=== PATIENT | male | born 1970 | race African-American/Black ===

== ENCOUNTER 2016-06-27 10:10 | Inpatient (IN) | payer MEDICAID, OTHER ==
[2016-06-27] MEDS ORDERED: LOSARTAN POTASSIUM 50 MG TABLET PO ONE (10:30)
--- NOTE | 2016-06-27 11:07 | ER Document Report ---
ED Respiratory Problem - General Chief Complaint: Breathing Difficulty Stated Complaint: SHORTNESS OF BREATH Time Seen by Provider: 06/27/16 10:15 Information source: Patient Notes: Patient is a 46-year-old male with past medical history as recorded who states she has had some increased shortness of breath and anxiety for one week. Patient denies any and all chest pain, abdominal pain, leg swelling, or fevers. Patient states he has only been intermittently taking his medications. Patient denies any auditory or visual hallucinations, suicidal ideations, homicidal ideations, or increased agitation. Patient states he last drank alcohol 3 days ago. He does admit to using cocaine yesterday. Patient states he broke up with his girlfriend around 1 week ago and has been wetting a room. He states he has not taken his medications for the last 4 days. Patient states he has some of his medications in his hotel room but is out of his hydrochlorothiazide, losartan, gabapentin, and prazosin. He denies any headache, has vomited 2, denies any diarrhea or dysuria. Patient states he has had a nonproductive cough with nasal congestion. Patient denies a history of asthma or COPD. TRAVEL OUTSIDE OF THE [place] IN LAST 30 DAYS: No - HPI Patient complains to provider of: Other - See above Onset: Other - See above Duration: Continuous Initiating Event: Other - See above Quality of pain: No pain Severity: Mild Pain Level: Denies Short of Breath: Mild Cough: Nonproductive Sputum amount: None Associated symptoms: Other - See above Similar symptoms previously: No Recently seen / treated by doctor: No - Related Data Allergies/Adverse Reactions: No Known Allergies Allergy (Verified 06/27/16 11:45) Past Medical History - General Information source: Patient - Social History Smoking Status: Smoker,Current Status Unk Cigarette use (# per day): Yes Chew tobacco use (# tins/day): No Smoking Education Provided: No Frequency of alcohol use: Heavy Drug Abuse: Cocaine Family History: Reviewed & Not Pertinent Patient has suicidal ideation: No Patient has homicidal ideation: No - Past Medical History Cardiac Medical History: Reports: Hx Hypertension GI Medical History: Reports: Hx Gastroesophageal Reflux Disease Musculoskeltal Medical History: Reports Hx Arthritis Psychiatric Medical History: Reports: Hx Depression, Hx Post Traumatic Stress Disorder Past Surgical History: Reports: Hx Orthopedic Surgery - Right knee - Immunizations Hx Diphtheria, Pertussis, Tetanus Vaccination: - unknown Hx Pneumococcal Vaccination: 02/18/14 Review of Systems - Review of Systems Constitutional: denies: Fever EENT: denies: Eye discharge, Nose discharge Respiratory: denies: Hemoptysis, Sputum Gastrointestinal: Vomiting Genitourinary: denies: Dysuria Musculoskeletal: denies: Leg swelling Skin: Other - no hives. denies: Rash Neurological/Psychological: Other - no slurred speech -: Yes All other systems reviewed and negative Physical Exam - Vital signs Vitals: Temp Resp BP Pulse Ox 98.4 F 19 171/30 H 96 06/27/16 10:51 06/27/16 10:51 06/27/16 10:51 06/27/16 10:51 Notes: Reviewed vital signs and nursing note as charted by RN. CONSTITUTIONAL: Alert and oriented and responds appropriately to questions. Well -appearing; well-nourished HEAD: Normocephalic; atraumatic EYES: PERRL ENT: Normal nose; bilateral nonpurulent nasal rhinorrhea NECK: Supple without meningismus; non-tender; no cervical lymphadenopathy, no masses CARD: Regular rate and rhythm; no murmurs, no clicks, no rubs, no gallops; symmetric distal pulses RESP: Normal chest excursion without splinting or tachypnea; breath sounds clear and equal bilaterally; no wheezing, rales, or rhonchi to auscultation. ABD/GI: Normal bowel sounds; non-distended; soft, non-tender, no rebound, no guarding; no palpable organomegaly or masses BACK: The back appears normal and is non-tender to palpation EXT: Normal ROM in all joints; non-tender to palpation; no cyanosis, no effusions, no edema SKIN: Normal color for age and race; warm; dry; good turgor; capillary refill < 2 seconds; no acute lesions noted NEURO: CN II through XII are intact. Moves all extremities equally; Motor and sensory function intact PSYCH: The patient's mood and manner are appropriate. Grooming and personal hygiene are appropriate. Course - Re-evaluation Re-evalutation: 06/27/16 11:06 Given the history and physical examination we will check basic labs, cardiac labs, EKG, x-ray the chest, and a BNP. I believe that the risk of pulmonary embolism and aortic dissection is extremely unlikely. We will provide fluids with increased glucose and restart the patient on his missing medications. Patient has a primary care physician and is followed by the [facility]. EKG shows a heart of 112, sinus tachycardia, normal axis, no obvious ST elevation or depression. Minimal LVH. Old EKG obtained from 2014 shows no obvious appreciable change. 06/27/16 12:05 Patient's breathing has improved. Heart rate is improved. X-ray of the chest shows obvious fluid overload. Good oxygen saturation. We have provided blood pressure medications. Patient has transaminitis which is consistent with his alcohol intake. I believe patient may need some IV diuretics, blood pressure management, and reassessment. Patient will be admitted to the hospitalist service. - Vital Signs Vital signs: Temp Pulse Resp BP Pulse Ox 98.4 F 18 182/143 H 96 06/27/16 10:51 06/27/16 11:01 06/27/16 11:00 06/27/16 11:01 - Laboratory Result Diagrams: 06/27/16 10:58 06/27/16 10:58 Laboratory results interpreted by me: 06/27/16 06/27/16 06/27/16 10:58 10:58 10:58 Hgb 12.6 L RDW 16.0 H Sodium 135.2 L Glucose 372 H POC Glucose Direct Bilirubin 0.5 H AST 164 H ALT 200 H Alkaline Phosphatase 185 H NT-Pro-B Natriuret Pep 3120 H Total Protein 6.0 L 06/27/16 11:27 Hgb RDW Sodium Glucose POC Glucose 348 H Direct Bilirubin AST ALT Alkaline Phosphatase NT-Pro-B Natriuret Pep Total Protein Discharge - Discharge Clinical Impression: Shortness of breath, Cocaine abuse Acute congestive heart failure Qualifiers: Congestive heart failure type: diastolic Qualified Code(s): I50.31 - Acute diastolic (congestive) heart failure Condition: Fair Disposition: ADMITTED INPATIENT Admitting Provider: Hospitalist Unit Admitted: [facility]
[2016-06-27] MEDS ORDERED: NORMAL SALINE 1000 ML 1,000 ML IV ONE (11:15)
[2016-06-27] MEDS ORDERED: METFORMIN HCL 500 MG TABLET PO ONE (11:15)
[2016-06-27 11:32] LABS: ALANINE AMINOTRANSFERASE 200 U/L (21-72); ALBUMIN 3.5 g/dL (3.5-5.0); ALKALINE PHOSPHATASE 185 U/L (38-126); ANION GAP 10 (5-19); ASPARTATE AMINO TRANSFERASE 164 U/L (17-59); BILIRUBIN,DIRECT 0.5 mg/dL (0.0-0.4); BILIRUBIN,TOTAL 1.3 mg/dL (0.2-1.3); BLOOD UREA NITROGEN 11 mg/dL (7-20); CALCIUM 8.8 mg/dL (8.4-10.2); CARBON DIOXIDE 25 mmol/L (22-30); CHLORIDE 100 mmol/L (98-107); GLUCOSE 372 mg/dL (75-110); POTASSIUM 4.5 mmol/L (3.6-5.0); SODIUM 135.2 mmol/L (137-145)
[2016-06-27 11:33] LABS: ABSOLUTE BASOPHILS # (AUTO) 0.1 10^3/uL (0.0-0.2); ABSOLUTE EOSINOPHILS # (AUTO) 0.1 10^3/uL (0.0-0.6); ABSOLUTE LYMPHOCYTES (AUTO) 1.3 10^3/uL (0.5-4.7); ABSOLUTE MONOCYTES (AUTO) 0.3 10^3/uL (0.1-1.4); ABSOLUTE NEUT (AUTO) 3.7 10^3/uL (1.7-8.2); BASOPHILS % (AUTO) 1.9 % (0-2); EOSINOPHILS % (AUTO) 2.5 % (0-6); HEMATOCRIT 37.9 % (37.9-51.0); HEMOGLOBIN 12.6 g/dL (13.5-17.0); HGB HCT DIFFERENCE -0.1; MEAN CORPUSCULAR HEMOGLOBIN 27.1 pg (27.0-33.4); MEAN CORPUSCULAR HGB CONC 33.2 g/dL (32.0-36.0); MEAN CORPUSCULAR VOLUME 82 fl (80-97); MONOCYTES % (AUTO) 6.3 % (3-13); RED BLOOD COUNT 4.64 10^6/uL (4.35-5.55); SEGMENTED NEUTROPHILS % (AUTO) 66.3 % (42-78); WHITE BLOOD COUNT 5.5 10^3/uL (4.0-10.5)
[2016-06-27 11:45] LABS: TROPONIN I 0.029 ng/mL
[2016-06-27] MEDS ORDERED: FUROSEMIDE INJ/PF 20 MG/2 ML SDV IV ONE (12:03)
[2016-06-27] MEDS ORDERED: ONDANSETRON HCL INJ/PF 4 MG/2 ML SDV IV PRN (12:56)
[2016-06-27] MEDS ORDERED: ONDANSETRON 4 MG TAB.RAPDIS PO PRN (12:56)
[2016-06-27] MEDS ORDERED: DEXTROSE 50%-WATER 25 GM/50 ML DISP.SYRIN IV PRN ×2 (13:03)
[2016-06-27] MEDS ORDERED: GLUCAGON,HUMAN RECOMB 1 MG INJ IM PRN (13:03)
[2016-06-27] MEDS ORDERED: DEXTROSE 40% GEL 15 GM TUBE PO PRN ×2 (13:03)
[2016-06-27] MEDS ORDERED: NITROGLYCERIN 2% OINTMENT 1 GM PACKET TP ONE (13:30)
--- NOTE | 2016-06-27 13:33 | PDOC H&P ---
History of Present Illness Admission Date/PCP: 06/27/16 12:21 Patient complains of: Shortness of breath History of Present Illness: MARILOU CUTLER is a 46 year old male who presents with a 1-week history shortness of breath. Patient reports that over the last week he has had worsening shortness of breath. He has not been taking his medications and has been from his for 2 months. He reports that he's been living at friend's house and has not taken his medications. Patient denies any chest pain but does report having orthopnea and PND. He is noted to be very hypertensive when he presented and chest x-ray shows an to have some pulmonary edema. The patient also does relate that he has done some cocaine over the last several days. The patient denies any fevers or chills. He does have a nonproductive cough. Denies any palpitations or tachycardia. He has not been checking his blood sugars or using his CPAP at night for his obstructive sleep apnea. Past Medical History Cardiac Medical History: Reports: Hypertension Pulmonary Medical History: Reports: Sleep Apnea EENT Medical History: Reports: None Neurological Medical History: Reports: None Endocrine Medical History: Reports: Diabetes Mellitus Type 2 Renal/ Medical History: Reports: None Malignancy Medical History: Reports: None GI Medical History: Reports: Gastroesophageal Reflux Disease Musculoskeltal Medical History: Reports: Arthritis Skin Medical History: Reports: None Psychiatric Medical History: Reports: Bipolar Disorder, Depression, Post Traumatic Stress Disorder Traumatic Medical History: Reports: None Hematology: Reports: None Infectious Medical History: Reports: None Past Surgical History Past Surgical History: Reports: Orthopedic Surgery - Right knee Social History Information Source: Patient Lives with: Friend Smoking Status: Smoker,Current Status Unk Frequency of Alcohol Use: Heavy Hx Recreational Drug Use: Yes Drugs: Cocaine, Marijuana Hx Prescription Drug Abuse: No - Advance Directive Resuscitation Status: Full Code Surrogate healthcare decision maker:: He is uncertain who that would be. He is from his . Family History Family History: Father at age 59 and had diabetes and coronary artery disease. Mother is 63 and alive. He reports that she is disabled but does not know what her problems are. Parental Family History Reviewed: Yes Children Family History Reviewed: No Sibling(s) Family History Reviewed.: No Medication/Allergy Home Medications: Cyanocobalamin (Vitamin B-12) [Vitamin B-12] 1,000 mcg PO DAILY 06/27/16 Gabapentin [Neurontin 400 mg Capsule] 400 mg PO QAM 06/27/16 Gabapentin [Neurontin 400 mg Capsule] 400 mg PO QHS 06/27/16 Hydrochlorothiazide 25 mg PO QAM 06/27/16 Losartan Potassium [Cozaar 50 mg Tablet] 50 mg PO QPM 06/27/16 Metformin HCl [Metformin HCl ER] 500 mg PO DAILY 06/27/16 Multivitamin/Iron/Folic Acid [Centrum Complete Multivit Tab] 1 tab PO DAILY 12/04 Omeprazole 20 mg PO QPM 06/27/16 Prazosin HCl [Minipress] 2 mg PO QHS 06/27/16 Quetiapine Fumarate [Seroquel] 300 mg PO QHS 06/27/16 Venlafaxine HCl [Effexor Xr] 150 mg PO BID 06/27/16 Allergies/Adverse Reactions: No Known Allergies Allergy (Verified 06/27/16 11:45) Review of Systems Constitutional: ABSENT: chills, fever(s), headache(s), night sweats, weight gain , weight loss Eyes: ABSENT: visual disturbances Ears: ABSENT: hearing changes Cardiovascular: PRESENT: dyspnea on exertion, edema, orthropnea. ABSENT: chest pain, palpitations Respiratory: PRESENT: as per HPI Gastrointestinal: ABSENT: abdominal pain, constipation, diarrhea, hematemesis, hematochezia, nausea, vomiting Genitourinary: ABSENT: dysuria, hematuria Musculoskeletal: ABSENT: joint swelling Integumentary: ABSENT: rash, wounds Neurological: ABSENT: abnormal gait, abnormal speech, confusion, dizziness, focal weakness, syncope Psychiatric: PRESENT: anxiety Endocrine: ABSENT: cold intolerance, heat intolerance, polydipsia, polyuria Hematologic/Lymphatic: ABSENT: easy bleeding, easy bruising Physical Exam Vital Signs: Temp Pulse Resp BP Pulse Ox 98.4 F 30 H 174/133 H 95 06/27/16 10:51 06/27/16 12:33 06/27/16 12:33 06/27/16 12:33 General appearance: PRESENT: no acute distress Eye exam: PRESENT: conjunctiva pink, EOMI, PERRLA. ABSENT: scleral icterus Ear exam: PRESENT: normal external ear exam Mouth exam: PRESENT: moist, tongue midline Neck exam: ABSENT: carotid bruit, JVD, lymphadenopathy, thyromegaly Respiratory exam: PRESENT: decreased breath sounds - Decreased breath sounds in the bases.. ABSENT: rales, rhonchi, wheezes Cardiovascular exam: PRESENT: RRR. ABSENT: diastolic murmur, rubs, systolic murmur Pulses: PRESENT: normal dorsalis pedis pul Vascular exam: PRESENT: normal capillary refill GI/Abdominal exam: PRESENT: normal bowel sounds, soft. ABSENT: distended, guarding, mass, organolmegaly, rebound, tenderness Rectal exam: PRESENT: deferred Extremities exam: ABSENT: calf tenderness, clubbing, pedal edema Neurological exam: PRESENT: alert, awake, oriented to person, oriented to place , oriented to time, oriented to situation, CN II-XII grossly intact. ABSENT: motor sensory deficit Psychiatric exam: PRESENT: anxious Skin exam: PRESENT: dry, intact, warm. ABSENT: cyanosis, rash Results Impressions: Chest X-Ray 06/27/16 10:30 IMPRESSION: Findings worrisome for fluid overload or congestive failure. Underlying pneumonia could not be excluded. Assessment & Plan - Diagnosis (1) Acute congestive heart failure Qualifiers: Congestive heart failure type: diastolic Qualified Code(s): I50.31 - Acute diastolic (congestive) heart failure Is this a current diagnosis for this admission?: YesPlan: Patient has acute congestive heart failure most likely related to uncontrolled blood pressures. We'll check serial cardiac enzymes to make certain he has not had any acute cardiac event and will also check an echocardiogram. We will give Nitropaste, IV Lasix, IV hydralazine to lower his blood pressure and hopefully his CHF will resolve. Patient does use cocaine also and this certainly is not helping his situation. (2) Cocaine abuse Is this a current diagnosis for this admission?: YesPlan: We'll avoid beta blockers given his recurrent history of cocaine abuse. (3) Diabetes mellitus Is this a current diagnosis for this admission?: YesPlan: Patient is to be covered with sliding scale insulin. (4) Bipolar disorder Is this a current diagnosis for this admission?: YesPlan: We'll continue with the Effexor and Seroquel. (5) Posttraumatic stress disorder Is this a current diagnosis for this admission?: YesPlan: Patient is followed at the [facility] for this (6) Hypertension Is this a current diagnosis for this admission?: YesPlan: We'll give IV Lasix, hydralazine, nitroglycerin paste. (7) DALIA (obstructive sleep apnea) Is this a current diagnosis for this admission?: YesPlan: Will use his CPAP daily at bedtime. - Time Time Spent: 50 to 70 Minutes - Inpatient Certification Medical Necessity: Need Close Monitoring Due to Risk of Patient Decompensation - Plan Summary Plan Summary: Patient will be admitted as an inpatient as I anticipate this will require greater than a 2 midnight hospital stay because of his need for IV diuretics.
--- NOTE | 2016-06-27 13:53 | EKG REPORT ---
SEVERITY:- ABNORMAL ECG - SINUS TACHYCARDIA PROBABLE LEFT ATRIAL ABNORMALITY PROBABLE LEFT VENTRICULAR HYPERTROPHY : Confirmed by: Pamela Loza 27-Jun-2016 13:52:57
[2016-06-27] MEDS: HYDRALAZINE HCL INJ/PF 20 MG/1 ML SDV IV PRN (15:10)
[2016-06-27] MEDS: INSULIN LISPRO 100 UNIT/ML 3 ML VIAL SUBCUT PRN ×2 (16:26→22:41)
[2016-06-27] MEDS: LANSOPRAZOLE 15 MG TAB.RAP.DR PO SCH (17:05)
[2016-06-27] MEDS: NITROGLYCERIN 2% OINTMENT 1 GM PACKET TP SCH ×2 (17:05→23:57)
[2016-06-27] MEDS: LOSARTAN POTASSIUM 50 MG TABLET PO SCH (17:06)
[2016-06-27 18:18] LABS: CREATINE KINASE MB 1.12 ng/mL (<4.55); TROPONIN I 0.025 ng/mL
[2016-06-27] MEDS ORDERED: CLONIDINE HCL 0.1 MG TABLET PO ONE (18:30)
--- NOTE | 2016-06-27 18:32 | XCELERA REPORT ---
[address] [address] Transthoracic Echocardiogram Report Name: MARILOU CUTLER Age: 46 yrs Gender: Male : 1970 Patient Status: Inpatient Patient Location: \S\[facility]\S\A Study Date: 06/27/2016 01:48 PM Height: 72 in Weight: 210 lb BSA: 2.2 m2 Procedure: A two-dimensional transthoracic echocardiogram with color flow and Doppler was performed. The study was technically difficult with many images being suboptimal in quality. The study was technically limited with all images being suboptimal in quality. Reason For Study: CHF /SOB /SWANSON History: CHF /SOB /SWANSON. Ordering Physician: JARROD JULIO Performed By: Alyce Garcia Interpretation Summary The left ventricle is moderately dilated. There is normal left ventricular wall thickness. LV EF is 25% Left ventricular systolic function is severely reduced. LV diastolic function could not be adequately assessed. There is severe global hypokinesis of the left ventricle. There is no thrombus. There is no ventricular septal defect visualized. The right ventricle is not well visualized secondary to technical limitations suspect RVH,mild RV enlargement and mildly reduced RV systolic function. Right atrium not well visualized secondary to technical limitations Probably mildly enlarged RA. The left atrium is moderately dilated. There is no evidence of mitral valve prolapse. There is no mitral valve stenosis. There is a mild to moderate amount of mitral regurgitation There is no aortic valve stenosis There is no LVOT obstruction. No aortic regurgitation is present. There is no tricuspid stenosis. There is a mild to moderate amount of tricuspid regurgitation There is servere pulmonary hypertension by echo RVSP is 69 to 74 mm of Hg , with RA mean of 15 to 20. There is a mild amount of pulmonic regurgitation Trace circumferential pericardial effusion. There are no echocardiographic indications of cardiac tamponade. MMode/2D Measurements \T\ Calculations RVDd: 3.6 cm LVIDd: 5.8 cm FS: 13.2 % EPSS: 2.0 cm IVSd: 0.88 cm LVIDs: 5.0 cm EDV(Teich): 167.9 ml LVPWd: 0.97 cm ESV(Teich): 121.0 ml EF(Teich): 27.9 % Ao root diam: 3.0 cm Ao root area: 6.9 cm2 LA dimension: 4.8 cm Doppler Measurements \T\ Calculations MV E max abad: MV P1/2t max abad: Ao V2 max: LV V1 max P.4 cm/sec 126.4 cm/sec 103.9 cm/sec 2.8 mmHg MV P1/2t: 40.2 msec Ao max PG: LV V1 max: MVA(P1/2t): 5.5 cm2 4.3 mmHg 83.9 cm/sec MV dec slope: 920.2 cm/sec2 PA V2 max: TR max abad: 79.5 cm/sec 365.8 cm/sec PA max P.5 mmHgTR max P.5 mmHg Left Ventricle The left ventricle is moderately dilated. There is normal left ventricular wall thickness. LV EF is 25%. Left ventricular systolic function is severely reduced. LV diastolic function could not be adequately assessed. There is severe global hypokinesis of the left ventricle. There is no thrombus. There is no ventricular septal defect visualized. Right Ventricle The right ventricle is not well visualized secondary to technical limitations. suspect RVH,mild RV enlargement and mildly reduced RV systolic function. Atria Right atrium not well visualized secondary to technical limitations. Probably mildly enlarged RA. The left atrium is moderately dilated. The interatrial septum is intact with no evidence for an atrial septal defect. Mitral Valve There is no evidence of mitral valve prolapse. There is no vegetation seen on the mitral valve. There is no mitral valve stenosis. There is a mild to moderate amount of mitral regurgitation. Aortic Valve There is no aortic valvular vegetation. There is no aortic valve stenosis. There is no LVOT obstruction. No aortic regurgitation is present. Tricuspid Valve There is no tricuspid stenosis. There is a mild to moderate amount of tricuspid regurgitation. There is servere pulmonary hypertension by echo. RVSP is 69 to 74 mm of Hg , with RA mean of 15 to 20. Pulmonic Valve There is no pulmonic valvular stenosis. There is a mild amount of pulmonic regurgitation. Great Vessels The aortic root is normal size. The inferior vena cava appeared dilated and decreased < 50% with respiration (RAP 15-20 mmHg). Effusions Trace circumferential pericardial effusion. There are no echocardiographic indications of cardiac tamponade. : JARROD JULIO > Elly Hardy
[2016-06-27] MEDS: ALBUTEROL SULFATE 0.083% NEB 2.5 MG/3 ML AMPUL NEB PRN (21:33)
[2016-06-27] MEDS: ACETAMINOPHEN 325 MG TABLET PO PRN (21:59)
[2016-06-27] MEDS ORDERED: (PENDING PHARMACY ID) (Quetiapine Fumarate [Seroquel] 300 MG) PO SCH (22:00)
[2016-06-27] MEDS: FUROSEMIDE INJ/PF 20 MG/2 ML SDV IV SCH (22:00)
[2016-06-27] MEDS ORDERED: (PENDING PHARMACY ID) (Prazosin Hcl [Minipress] 2 MG) PO SCH (22:00)
[2016-06-27] MEDS ORDERED: GABAPENTIN 400 MG CAPSULE PO SCH (22:00)
[2016-06-27] MEDS: FAMOTIDINE 20 MG TABLET PO SCH (22:01)
[2016-06-27] MEDS: VENLAFAXINE HCL 75 MG CAP.SR.24H PO SCH (22:01)
[2016-06-27] MEDS: QUETIAPINE FUMARATE 100 MG TABLET PO SCH (22:02)
[2016-06-28 00:15] LABS: CREATINE KINASE MB 1.03 ng/mL (<4.55); TROPONIN I 0.03 ng/mL
[2016-06-28 06:01] LABS: HEMATOCRIT 34.2 % (37.9-51.0); HEMOGLOBIN 11.5 g/dL (13.5-17.0); HGB HCT DIFFERENCE 0.3; MEAN CORPUSCULAR HEMOGLOBIN 27.2 pg (27.0-33.4); MEAN CORPUSCULAR HGB CONC 33.5 g/dL (32.0-36.0); MEAN CORPUSCULAR VOLUME 81 fl (80-97); RED BLOOD COUNT 4.22 10^6/uL (4.35-5.55); RED CELL DISTRIBUTION WIDTH 16.4 % (11.5-14.0); WHITE BLOOD COUNT 5.2 10^3/uL (4.0-10.5)
[2016-06-28] MEDS: NITROGLYCERIN 2% OINTMENT 1 GM PACKET TP SCH ×3 (06:11→17:34)
[2016-06-28 06:33] LABS: CREATINE KINASE MB 0.76 ng/mL (<4.55); TROPONIN I 0.031 ng/mL
[2016-06-28 07:27] LABS: ANION GAP 11 (5-19); BLOOD UREA NITROGEN 15 mg/dL (7-20); CALCIUM 8.7 mg/dL (8.4-10.2); CARBON DIOXIDE 27 mmol/L (22-30); CHLORIDE 101 mmol/L (98-107); CREATINE KINASE 68 U/L (55-170); CREATININE RESULT 0.95 mg/dL (0.52-1.25); GLUCOSE 207 mg/dL (75-110); MAGNESIUM 1.7 mg/dL (1.6-2.3); POTASSIUM 3.6 mmol/L (3.6-5.0); SODIUM 138.8 mmol/L (137-145)
[2016-06-28] MEDS: INSULIN LISPRO 100 UNIT/ML 3 ML VIAL SUBCUT PRN ×4 (07:50→22:43)
[2016-06-28] MEDS ORDERED: GABAPENTIN 400 MG CAPSULE PO SCH (08:00)
[2016-06-28] MEDS: CYANOCOBALAMIN (VITAMIN B-12) 1,000 MCG TABLET PO SCH (09:20)
[2016-06-28] MEDS: HYDROCHLOROTHIAZIDE 25 MG TABLET PO SCH (09:20)
[2016-06-28] MEDS: MULTIVITAMIN TABLET PO SCH (09:20)
[2016-06-28] MEDS: FAMOTIDINE 20 MG TABLET PO SCH ×2 (09:20→22:37)
[2016-06-28] MEDS: VENLAFAXINE HCL 75 MG CAP.SR.24H PO SCH ×2 (09:21→22:37)
[2016-06-28] MEDS: FUROSEMIDE INJ/PF 20 MG/2 ML SDV IV SCH ×2 (09:21→22:37)
[2016-06-28] MEDS ORDERED: (PENDING PHARMACY ID) (Multivitamin/Iron/Folic Acid [Centrum Complete Multivit Tab] 1 TAB) PO SCH (10:00)
--- NOTE | 2016-06-28 10:30 | PDOC PROGRESS REPORT ---
Subjective Progress Note for:: 06/28/16 Subjective:: Patient is still short of breath but reports is improved from yesterday. Physical Exam Vital Signs: Temp Pulse Resp BP Pulse Ox 97.9 F 100 18 151/103 H 98 06/28/16 07:57 06/28/16 08:00 06/28/16 08:00 06/28/16 07:57 06/28/16 08:00 Intake & Output 06/27/16 06/28/16 06/29/16 06:59 06:59 06:59 Intake Total 712 Output Total 1999 Balance -1288 Weight 94.3 kg General appearance: PRESENT: mild distress Eye exam: PRESENT: conjunctiva pink. ABSENT: scleral icterus Mouth exam: PRESENT: moist, tongue midline Neck exam: ABSENT: JVD Respiratory exam: PRESENT: rales - Bibasilar respiratory rales.. ABSENT: rhonchi, wheezes Cardiovascular exam: PRESENT: RRR. ABSENT: diastolic murmur, rubs, systolic murmur GI/Abdominal exam: PRESENT: normal bowel sounds, soft. ABSENT: distended, guarding, mass, organolmegaly, rebound, tenderness Extremities exam: PRESENT: pedal edema - Trace pretibial edema.. ABSENT: calf tenderness, clubbing Neurological exam: PRESENT: alert, awake, oriented to person, oriented to place , oriented to time, oriented to situation, CN II-XII grossly intact. ABSENT: motor sensory deficit Psychiatric exam: PRESENT: appropriate affect Skin exam: PRESENT: dry, intact, warm. ABSENT: cyanosis, rash Results Laboratory Results: 06/28/16 05:29 06/28/16 06:59 06/28/16 06/28/16 06/28/16 05:29 05:29 06:59 WBC 5.2 RBC 4.22 L Hgb 11.5 L Hct 34.2 L MCV 81 MCH 27.2 MCHC 33.5 RDW 16.4 H Plt Count 225 Sodium Cancelled 138.8 Potassium Cancelled 3.6 Chloride Cancelled 101 Carbon Dioxide Cancelled 27 Anion Gap Cancelled 11 BUN Cancelled 15 Creatinine Cancelled 0.95 Est GFR ( Amer) Cancelled > 60 Est GFR (Non-Af Amer) Cancelled > 60 Glucose Cancelled 207 H Calcium Cancelled 8.7 Magnesium Cancelled 1.7 06/27/16 06/27/1606/27/17 17:25 17:25 23:30 Creatine Kinase 95 73 CK-MB (CK-2) 1.12 Troponin I 0.025 06/27/16 06/28/16 06/28/16 23:30 05:29 05:29 Creatine Kinase Cancelled CK-MB (CK-2) 1.03 0.76 Troponin I 0.030 0.031 06/28/16 06:59 Creatine Kinase 68 CK-MB (CK-2) Troponin I Impressions: Chest X-Ray 06/27/16 10:30 IMPRESSION: Findings worrisome for fluid overload or congestive failure. Underlying pneumonia could not be excluded. Assessment & Plan - Diagnosis (1) Acute congestive heart failure Qualifiers: Congestive heart failure type: diastolic Qualified Code(s): I50.31 - Acute diastolic (congestive) heart failure Is this a current diagnosis for this admission?: YesPlan: Patient has acute congestive heart failure most likely related to uncontrolled blood pressures. The patient had an echocardiogram yesterday that shows an ejection fraction of 25% along with significant pulmonary hypertension. We'll continue with an hypertensives and IV Lasix. Patient currently is using his CPAP. (2) Cocaine abuse Is this a current diagnosis for this admission?: YesPlan: We'll avoid beta blockers given his recurrent history of cocaine abuse. (3) Diabetes mellitus Is this a current diagnosis for this admission?: YesPlan: Patient is to be covered with sliding scale insulin. (4) Bipolar disorder Is this a current diagnosis for this admission?: YesPlan: We'll continue with the Effexor and Seroquel. (5) Posttraumatic stress disorder Is this a current diagnosis for this admission?: YesPlan: Patient is followed at the [facility] for this (6) Hypertension Is this a current diagnosis for this admission?: YesPlan: We'll give IV Lasix, hydralazine, nitroglycerin paste. (7) DALIA (obstructive sleep apnea) Is this a current diagnosis for this admission?: YesPlan: Will use his CPAP daily at bedtime. - Time Time Spent with patient: 25-34 minutes - Inpatient Certification Medical Necessity: Need Close Monitoring Due to Risk of Patient Decompensation
[2016-06-28] MEDS: HYDRALAZINE HCL INJ/PF 20 MG/1 ML SDV IV PRN ×2 (14:53→22:45)
[2016-06-28] MEDS: LANSOPRAZOLE 15 MG TAB.RAP.DR PO SCH (17:34)
[2016-06-28] MEDS: LOSARTAN POTASSIUM 50 MG TABLET PO SCH (17:34)
[2016-06-28] MEDS: QUETIAPINE FUMARATE 100 MG TABLET PO SCH (22:36)
[2016-06-28] MEDS: GABAPENTIN 400 MG CAPSULE PO SCH (22:36)
[2016-06-29] MEDS: NITROGLYCERIN 2% OINTMENT 1 GM PACKET TP SCH ×4 (00:39→17:30)
[2016-06-29 04:43] LABS: ABSOLUTE BASOPHILS # (AUTO) 0.1 10^3/uL (0.0-0.2); ABSOLUTE EOSINOPHILS # (AUTO) 0.3 10^3/uL (0.0-0.6); ABSOLUTE LYMPHOCYTES (AUTO) 0.9 10^3/uL (0.5-4.7); ABSOLUTE MONOCYTES (AUTO) 0.4 10^3/uL (0.1-1.4); ABSOLUTE NEUT (AUTO) 4.5 10^3/uL (1.7-8.2); EOSINOPHILS % (AUTO) 4.6 % (0-6); HEMATOCRIT 36.3 % (37.9-51.0); HEMOGLOBIN 12.2 g/dL (13.5-17.0); HGB HCT DIFFERENCE 0.3; LYMPHOCYTES % (AUTO) 15.3 % (13-45); MEAN CORPUSCULAR HEMOGLOBIN 26.9 pg (27.0-33.4); MEAN CORPUSCULAR HGB CONC 33.6 g/dL (32.0-36.0); MEAN CORPUSCULAR VOLUME 80 fl (80-97); MONOCYTES % (AUTO) 5.8 % (3-13); RED BLOOD COUNT 4.53 10^6/uL (4.35-5.55); RED CELL DISTRIBUTION WIDTH 16.1 % (11.5-14.0); SEGMENTED NEUTROPHILS % (AUTO) 73.3 % (42-78); WHITE BLOOD COUNT 6.2 10^3/uL (4.0-10.5)
[2016-06-29 05:03] LABS: ANION GAP 12 (5-19); BLOOD UREA NITROGEN 14 mg/dL (7-20); CALCIUM 9.1 mg/dL (8.4-10.2); CARBON DIOXIDE 27 mmol/L (22-30); CHLORIDE 100 mmol/L (98-107); CREATININE RESULT 0.96 mg/dL (0.52-1.25); GLUCOSE 204 mg/dL (75-110); POTASSIUM 3.8 mmol/L (3.6-5.0); SODIUM 139.3 mmol/L (137-145)
[2016-06-29] MEDS: INSULIN LISPRO 100 UNIT/ML 3 ML VIAL SUBCUT PRN ×4 (07:29→22:40)
[2016-06-29] MEDS: HYDROCHLOROTHIAZIDE 25 MG TABLET PO SCH (07:37)
[2016-06-29] MEDS: VENLAFAXINE HCL 75 MG CAP.SR.24H PO SCH ×2 (09:29→21:36)
[2016-06-29] MEDS: CYANOCOBALAMIN (VITAMIN B-12) 1,000 MCG TABLET PO SCH (09:29)
[2016-06-29] MEDS: FUROSEMIDE INJ/PF 20 MG/2 ML SDV IV SCH ×2 (09:29→21:37)
[2016-06-29] MEDS: GABAPENTIN 400 MG CAPSULE PO SCH ×2 (09:29→21:36)
[2016-06-29] MEDS: FAMOTIDINE 20 MG TABLET PO SCH ×2 (09:29→21:36)
[2016-06-29] MEDS: MULTIVITAMIN TABLET PO SCH (09:29)
[2016-06-29] MEDS: ALBUTEROL SULFATE 0.083% NEB 2.5 MG/3 ML AMPUL NEB PRN (09:38)
--- NOTE | 2016-06-29 11:04 | PDOC PROGRESS REPORT ---
Subjective Progress Note for:: 06/29/16 Subjective:: Denies any complaints. Physical Exam Vital Signs: Temp Pulse Resp BP Pulse Ox 98.6 F 110 H 18 152/111 H 93 06/29/16 07:55 06/29/16 09:35 06/29/16 09:35 06/29/16 07:55 06/29/16 09:35 Intake & Output 06/28/16 06/29/16 06/30/16 06:59 06:59 06:59 Intake Total 712 1861 Output Total 1999 5115 Balance -9034 -4740 Weight 94.3 kg 92.2 kg General appearance: PRESENT: no acute distress Eye exam: PRESENT: conjunctiva pink. ABSENT: scleral icterus Mouth exam: PRESENT: moist, tongue midline Neck exam: ABSENT: JVD Respiratory exam: PRESENT: clear to auscultation dewayne. ABSENT: rales, rhonchi, wheezes Cardiovascular exam: PRESENT: RRR. ABSENT: diastolic murmur, rubs, systolic murmur GI/Abdominal exam: PRESENT: normal bowel sounds, soft. ABSENT: distended, guarding, mass, organolmegaly, rebound, tenderness Extremities exam: ABSENT: calf tenderness, clubbing, pedal edema Neurological exam: PRESENT: alert, awake, oriented to person, oriented to place , oriented to time, oriented to situation, CN II-XII grossly intact. ABSENT: motor sensory deficit Psychiatric exam: PRESENT: appropriate affect Skin exam: PRESENT: dry, intact, warm. ABSENT: cyanosis, rash Results Laboratory Results: 06/29/16 04:28 06/29/16 04:28 06/29/16 06/29/16 04:28 04:28 WBC 6.2 RBC 4.53 Hgb 12.2 L Hct 36.3 L MCV 80 MCH 26.9 L MCHC 33.6 RDW 16.1 H Plt Count 298 Seg Neutrophils % 73.3 Lymphocytes % 15.3 Monocytes % 5.8 Eosinophils % 4.6 Basophils % 1.0 Absolute Neutrophils 4.5 Absolute Lymphocytes 0.9 Absolute Monocytes 0.4 Absolute Eosinophils 0.3 Absolute Basophils 0.1 Sodium 139.3 Potassium 3.8 Chloride 100 Carbon Dioxide 27 Anion Gap 12 BUN 14 Creatinine 0.96 Est GFR ( Amer) > 60 Est GFR (Non-Af Amer) > 60 Glucose 204 H Calcium 9.1 06/27/16 06/27/16 06/27/16 17:25 17:25 23:30 Creatine Kinase 95 73 CK-MB (CK-2) 1.12 Troponin I 0.025 06/27/16 06/28/16 06/28/16 23:30 05:29 05:29 Creatine Kinase Cancelled CK-MB (CK-2) 1.03 0.76 Troponin I 0.030 0.031 06/28/16 06:59 Creatine Kinase 68 CK-MB (CK-2) Troponin I Impressions: Chest X-Ray 06/27/16 10:30 IMPRESSION: Findings worrisome for fluid overload or congestive failure. Underlying pneumonia could not be excluded. Assessment & Plan - Diagnosis (1) Acute congestive heart failure Qualifiers: Congestive heart failure type: diastolic Qualified Code(s): I50.31 - Acute diastolic (congestive) heart failure Is this a current diagnosis for this admission?: YesPlan: Patient has acute congestive heart failure most likely related to uncontrolled blood pressures. The patient had an echocardiogram that shows an ejection fraction of 25% along with significant pulmonary hypertension. We'll continue with an hypertensives and IV Lasix. Patient currently is using his CPAP. (2) Cocaine abuse Is this a current diagnosis for this admission?: YesPlan: We'll avoid beta blockers given his recurrent history of cocaine abuse. (3) Diabetes mellitus Is this a current diagnosis for this admission?: YesPlan: Patient is to be covered with sliding scale insulin. (4) Bipolar disorder Is this a current diagnosis for this admission?: YesPlan: We'll continue with the Effexor and Seroquel. (5) Posttraumatic stress disorder Is this a current diagnosis for this admission?: YesPlan: Patient is followed at the [facility] for this (6) Hypertension Is this a current diagnosis for this admission?: YesPlan: We'll give IV Lasix, hydralazine, nitroglycerin paste. (7) DALIA (obstructive sleep apnea) Is this a current diagnosis for this admission?: YesPlan: Will use his CPAP daily at bedtime. - Time Time Spent with patient: 25-34 minutes - Inpatient Certification Medical Necessity: Need Close Monitoring Due to Risk of Patient Decompensation - Plan Summary Plan Summary: If he continues to improve, hopefully he can be discharged home tomorrow.
[2016-06-29] MEDS: ACETAMINOPHEN 325 MG TABLET PO PRN ×2 (11:54→18:54)
[2016-06-29] MEDS: LANSOPRAZOLE 15 MG TAB.RAP.DR PO SCH (17:29)
[2016-06-29] MEDS: LOSARTAN POTASSIUM 50 MG TABLET PO SCH (17:29)
[2016-06-29] MEDS: HYDRALAZINE HCL INJ/PF 20 MG/1 ML SDV IV PRN (18:53)
[2016-06-29] MEDS: QUETIAPINE FUMARATE 100 MG TABLET PO SCH (21:36)
[2016-06-30] MEDS: NITROGLYCERIN 2% OINTMENT 1 GM PACKET TP SCH ×2 (02:06→05:53)
[2016-06-30 04:48] LABS: ABSOLUTE BASOPHILS # (AUTO) 0.1 10^3/uL (0.0-0.2); ABSOLUTE EOSINOPHILS # (AUTO) 0.3 10^3/uL (0.0-0.6); ABSOLUTE LYMPHOCYTES (AUTO) 0.9 10^3/uL (0.5-4.7); ABSOLUTE MONOCYTES (AUTO) 0.4 10^3/uL (0.1-1.4); ABSOLUTE NEUT (AUTO) 4.8 10^3/uL (1.7-8.2); BASOPHILS % (AUTO) 1.4 % (0-2); EOSINOPHILS % (AUTO) 4.9 % (0-6); HEMATOCRIT 38.3 % (37.9-51.0); HEMOGLOBIN 12.8 g/dL (13.5-17.0); HGB HCT DIFFERENCE 0.1; LYMPHOCYTES % (AUTO) 14.2 % (13-45); MEAN CORPUSCULAR HEMOGLOBIN 26.8 pg (27.0-33.4); MEAN CORPUSCULAR HGB CONC 33.5 g/dL (32.0-36.0); MEAN CORPUSCULAR VOLUME 80 fl (80-97); MONOCYTES % (AUTO) 5.7 % (3-13); RED BLOOD COUNT 4.78 10^6/uL (4.35-5.55); RED CELL DISTRIBUTION WIDTH 16.6 % (11.5-14.0); SEGMENTED NEUTROPHILS % (AUTO) 73.8 % (42-78); WHITE BLOOD COUNT 6.4 10^3/uL (4.0-10.5)
[2016-06-30 05:29] LABS: ANION GAP 11 (5-19); BLOOD UREA NITROGEN 14 mg/dL (7-20); CALCIUM 9.3 mg/dL (8.4-10.2); CARBON DIOXIDE 27 mmol/L (22-30); CHLORIDE 102 mmol/L (98-107); CREATININE RESULT 0.89 mg/dL (0.52-1.25); GLUCOSE 134 mg/dL (75-110); SODIUM 139.7 mmol/L (137-145)
[2016-06-30] MEDS: HYDROCHLOROTHIAZIDE 25 MG TABLET PO SCH (08:31)
[2016-06-30] MEDS: FUROSEMIDE INJ/PF 20 MG/2 ML SDV IV SCH (09:26)
[2016-06-30] MEDS: GABAPENTIN 400 MG CAPSULE PO SCH (09:29)
[2016-06-30] MEDS: CYANOCOBALAMIN (VITAMIN B-12) 1,000 MCG TABLET PO SCH (09:29)
[2016-06-30] MEDS: VENLAFAXINE HCL 75 MG CAP.SR.24H PO SCH (09:29)
[2016-06-30] MEDS: MULTIVITAMIN TABLET PO SCH (09:29)
[2016-06-30] MEDS: FAMOTIDINE 20 MG TABLET PO SCH (09:30)
[2016-06-30 09:36] VITALS: BP 169/130
--- NOTE | 2016-06-30 10:38 | PDOC DISCHARGE SUMMARY ---
General - Admit/Disc Date/PCP Admission Date/Primary Care Provider: 06/27/16 12:56 Discharge Date: 06/30/16 - Discharge Diagnosis (1) Acute congestive heart failure Is this a current diagnosis for this admission?: YesSummary: Systolic congestive heart failure. Secondary to uncontrolled hypertension as well as severe pulmonary hypertension. Ejection fraction of 25%. (2) Cocaine abuse Is this a current diagnosis for this admission?: Yes (3) Diabetes mellitus Is this a current diagnosis for this admission?: Yes (4) Bipolar disorder Is this a current diagnosis for this admission?: Yes (5) Posttraumatic stress disorder Is this a current diagnosis for this admission?: Yes (6) Hypertension Is this a current diagnosis for this admission?: Yes (7) DALIA (obstructive sleep apnea) Is this a current diagnosis for this admission?: YesSummary: Patient has not been wearing his CPAP but he is instructed on the importance of that given his pulmonary hypertension. - Additional Information Resuscitation Status: Full Code Discharge Diet: Cardiac Discharge Activity: Activity As Tolerated, Balance Activity w/Rest, Weigh Daily Home Medications: Multivitamin/Iron/Folic Acid [Centrum Complete Multivit Tab] 1 tab PO DAILY 12/04 Cyanocobalamin (Vitamin B-12) [Vitamin B-12] 1,000 mcg PO DAILY #30 tablet 06/30 Gabapentin [Neurontin 400 mg Capsule] 400 mg PO QAM #30 capsule 06/30/16 Gabapentin [Neurontin 400 mg Capsule] 400 mg PO QHS #30 capsule 06/30/16 Hydrochlorothiazide 25 mg PO QAM #30 tablet 06/30/16 Losartan Potassium [Cozaar 50 mg Tablet] 50 mg PO QPM #30 tablet 06/30/16 Metformin HCl [Metformin HCl ER] 500 mg PO DAILY #30 [id number] 06/30/16 Omeprazole 20 mg PO QPM #30 capsule. 06/30/16 Prazosin HCl [Minipress] 2 mg PO QHS #30 capsule 06/30/16 Quetiapine Fumarate [Seroquel] 300 mg PO QHS #30 tablet 06/30/16 Venlafaxine HCl [Effexor Xr] 150 mg PO BID #60 cap.sr.24h 06/30/16 History of Present Illness History of Present Illness: MARILOU CUTLER is a 46 year old male who presents with a 1-week history shortness of breath. Patient reports that over the last week he has had worsening shortness of breath. He has not been taking his medications and has been from his for 2 months. He reports that he's been living at friend's house and has not taken his medications. Patient denies any chest pain but does report having orthopnea and PND. He is noted to be very hypertensive when he presented and chest x-ray shows an to have some pulmonary edema. The patient also does relate that he has done some cocaine over the last several days. The patient denies any fevers or chills. He does have a nonproductive cough. Denies any palpitations or tachycardia. He has not been checking his blood sugars or using his CPAP at night for his obstructive sleep apnea. Hospital Course Hospital Course: 46-year-old man who's been from his the last several months and has not been using his CPAP or taking his medications who presented with acute shortness of breath. Patient was found to be in acute congestive heart failure. The patient was started on IV diuretics and was restarted on his CPAP which he had not worn for quite some time. The patient's respiratory status improved and an echocardiogram did show him to have significant systolic congestive heart failure with global hypokinesis. Ejection fraction 25%. He also was noted to have severe pulmonary hypertension most likely the basis of this is his untreated sleep apnea. Patient's respiratory status improved and he was instructed that he needs to take his antihypertensive every day and also to use his CPAP daily. Patient is normally followed at the [facility] and he is instructed to follow-up with him in the next 2 weeks. Given his history of cocaine use he was not started on beta blockers. Physical Exam Vital Signs: Temp Pulse Resp BP Pulse Ox 97.9 F 106 H 16 169/130 H 96 06/30/16 09:34 06/30/16 09:34 06/30/16 09:34 06/30/16 09:34 06/30/16 09:34 Intake & Output 06/29/16 06/30/16 07/01/16 06:59 06:59 06:59 Intake Total 0203 3609 Output Total 9937 1907 Yyianfq -3078 -6994 Weight 92.2 kg 88.1 kg General appearance: PRESENT: no acute distress, well-developed, well-nourished Eye exam: PRESENT: conjunctiva pink. ABSENT: scleral icterus Mouth exam: PRESENT: moist, tongue midline Neck exam: ABSENT: carotid bruit, JVD, lymphadenopathy, thyromegaly Respiratory exam: PRESENT: clear to auscultation dewayne. ABSENT: rales, rhonchi, wheezes Cardiovascular exam: PRESENT: RRR. ABSENT: diastolic murmur, rubs, systolic murmur GI/Abdominal exam: PRESENT: normal bowel sounds, soft. ABSENT: distended, guarding, mass, organolmegaly, rebound, tenderness Extremities exam: ABSENT: calf tenderness, clubbing, pedal edema Neurological exam: PRESENT: alert, awake, oriented to person, oriented to place , oriented to time, oriented to situation, CN II-XII grossly intact. ABSENT: motor sensory deficit Psychiatric exam: PRESENT: appropriate affect Skin exam: PRESENT: dry, intact, warm. ABSENT: cyanosis, rash Results Laboratory Results: 06/30/16 04:02 06/30/16 04:02 06/30/16 06/30/16 04:02 04:02 WBC 6.4 RBC 4.78 Hgb 12.8 L Hct 38.3 MCV 80 MCH 26.8 L MCHC 33.5 RDW 16.6 H Plt Count 331 Seg Neutrophils % 73.8 Lymphocytes % 14.2 Monocytes % 5.7 Eosinophils % 4.9 Basophils % 1.4 Absolute Neutrophils 4.8 Absolute Lymphocytes 0.9 Absolute Monocytes 0.4 Absolute Eosinophils 0.3 Absolute Basophils 0.1 Sodium 139.7 Potassium 4.0 Chloride 102 Carbon Dioxide 27 Anion Gap 11 BUN 14 Creatinine 0.89 Est GFR ( Amer) > 60 Est GFR (Non-Af Amer) > 60 Glucose 134 H Calcium 9.3 06/27/16 06/27/16 06/27/16 17:25 17:25 23:30 Creatine Kinase 95 73 CK-MB (CK-2) 1.12 Troponin I 0.025 06/27/16 06/28/16 06/28/16 23:30 05:29 05:29 Creatine Kinase Cancelled CK-MB (CK-2) 1.03 0.76 Troponin I 0.030 0.031 06/28/16 06:59 Creatine Kinase 68 CK-MB (CK-2) Troponin I Impressions: Chest X-Ray 06/27/16 10:30 IMPRESSION: Findings worrisome for fluid overload or congestive failure. Underlying pneumonia could not be excluded. Qualifiers PATEINT BEING DISCHARGED WITH ANY OF THE FOLLOWING DIAGNOSIS?: Heart Failure HF Pt being discharged on ACEI for LVEF less than 40%?: Yes HF Pt being discharged on ARBS for LVEF less than 40%?: Yes HF Pt discharged on evidence-based Beta Shruthi:: No Reason(s) for not prescribing evidence-based Beta Shruthi:: Procedure Contraindicated Plan Discharge Plan: Patient is discharged home and will follow up with primary care in 2 weeks. Time Spent: Greater than 30 Minutes
== END 2016-06-30 10:43 | disposition home or self-care (01) | DRG 293 ==
LOC: ER 10:10 → EH 12:21 → UNDOADMIN 12:21 → EH 12:56 → 3W 14:24
PROVIDERS: ADMIT Internal Medicine; ATTEND Internal Medicine
DX: I11.0 Hypertensive heart disease with heart failure (principal); I50.21 Acute systolic (congestive) heart failure; I27.2 Other secondary pulmonary hypertension; E11.9 Type 2 diabetes mellitus without complications; K21.9 Gastro-esophageal reflux disease without esophagitis; M19.90 Unspecified osteoarthritis, unspecified site; F43.10 Post-traumatic stress disorder, unspecified; F14.10 Cocaine abuse, uncomplicated; F31.9 Bipolar disorder, unspecified; G47.33 Obstructive sleep apnea (adult) (pediatric); Z82.49 Family history of ischemic heart disease and other diseases of the circulatory system; Z91.14 Patient's other noncompliance with medication regimen; Z79.84 Long term (current) use of oral hypoglycemic drugs
CPT/HCPCS: 36415; 71020; 80048; 80053; 82550; 82553; 82962; 83735; 83880; 84484; 85025; 85027; 93005; 93010; 93306; 94660; 96360; 99285; J0360; J1815; J1940; J7030

== ENCOUNTER 2016-08-16 20:11 | Inpatient (IN) | payer OTHER ==
[2016-08-16] MEDS ORDERED: LORAZEPAM INJ 2 MG/1 ML VIAL IV ONE (20:31)
--- NOTE | 2016-08-16 20:33 | ER Document Report ---
ED Respiratory Problem - General Chief Complaint: Shortness Of Breath Stated Complaint: SHORTNESS OF BREATH Time Seen by Provider: 08/16/16 20:19 Notes: Patient is a 46-year-old male who comes emergency department for chief complaint of difficulty breathing, this started this evening, patient has a history of CHF, he states he has been mostly compliant with his home medications although he has missed a couple of doses. He is on hypertensive medications and CPAP, states she is not using the CPAP because he cannot tolerate it. Patient denies fever, cough, chest pain. He does complain of some vague abdominal discomfort and bloating, has also been somewhat constipated. I asked patient if he had used cocaine because of elevated heart rate, blood pressure, and difficulty breathing, he admits that he used again today and had not used it for about a week beforehand. Past medical history bipolar, PTSD. He states he tried to get into rehab through [facility] but was unsuccessful. TRAVEL OUTSIDE OF THE [place] IN LAST 30 DAYS: No - Related Data Allergies/Adverse Reactions: No Known Allergies Allergy (Verified 06/27/16 11:45) Past Medical History - General Information source: Patient - Social History Smoking Status: Never Smoker Frequency of alcohol use: Occasional Drug Abuse: Cocaine Lives with: Family Family History: Reviewed & Not Pertinent Patient has suicidal ideation: No - Past Medical History Cardiac Medical History: Reports: Hx Congestive Heart Failure, Hx Hypertension Pulmonary Medical History: Reports: Hx Sleep Apnea Endocrine Medical History: Reports: Hx Diabetes Mellitus Type 2 Renal/ Medical History: Denies: Hx Peritoneal Dialysis GI Medical History: Reports: Hx Gastroesophageal Reflux Disease Musculoskeltal Medical History: Reports Hx Arthritis Psychiatric Medical History: Reports: Hx Bipolar Disorder, Hx Depression, Hx Post Traumatic Stress Disorder Past Surgical History: Reports: Hx Orthopedic Surgery - Right knee - Immunizations Hx Diphtheria, Pertussis, Tetanus Vaccination: - unknown Hx Pneumococcal Vaccination: 02/18/14 Review of Systems - Review of Systems Constitutional: No symptoms reported EENT: No symptoms reported Cardiovascular: See HPI Respiratory: See HPI Gastrointestinal: See HPI Genitourinary: No symptoms reported Male Genitourinary: No symptoms reported Musculoskeletal: No symptoms reported Skin: No symptoms reported Hematologic/Lymphatic: No symptoms reported Neurological/Psychological: No symptoms reported Physical Exam - Vital signs Vitals: Resp Pulse Ox 34 H 95 08/16/16 20:22 08/16/16 20:22 - General General appearance: Anxious In distress: Mild - HEENT Head: Normocephalic, Atraumatic Eyes: Normal Conjunctiva: Normal Eyelashes: Normal Pupils: PERRL Sinus: Normal Nasal: Normal Mouth/Lips: Normal Mucous membranes: Normal Pharynx: Normal Neck: Normal - Respiratory Respiratory status: Tachypnea - appears to be hyperventilating slighlty Breath sounds: Normal. No: Productive cough, Rales, Rhonchi, Stridor, Wheezing - Cardiovascular Rhythm: Regular, Tachycardia Heart sounds: Normal auscultation, S1 appreciated, S2 appreciated - Abdominal Inspection: Normal Tenderness: Tender - very mild generalized tenderness, no significant tenderness or guarding - Back Back: Normal, Nontender - Extremities General upper extremity: Normal inspection, Nontender, Normal ROM, Normal strength General lower extremity: Normal inspection, Nontender, Edema - mild bilateral 1 + edema, Normal ROM, Normal strength - Neurological Neuro grossly intact: Yes Cognition: Normal Orientation: AAOx4 Mary Alice Coma Scale Eye Opening: Spontaneous Mary [place] Coma Scale Verbal: Oriented Mary [place] Coma Scale Motor: Obeys Commands Mary Alice Coma Scale Total: 15 Speech: Normal Cranial nerves: Normal Motor strength normal: LUE, RUE, LLE, RLE Sensory: Normal - Psychological Associated symptoms: Anxious - Skin Skin Temperature: Warm Skin Moisture: Dry Skin Color: Normal Course - Re-evaluation Re-evalutation: Patient hypertensive, tachycardic, but he is noted to be tachycardic from previous visit as well. Hyperventilating slightly but not hypoxic. No rales on exam. Patient given ativan, workup pending. Patient stopped hyperventilating, but still tachycardic and hypotensive. Initial workup nonspecific, patient complaining of mild upper abdominal pain, LFTs and alk phos are very comparable to prior, normal lipase, ultrasound performed and does not show any obstruction, does show ascites, nonspecific at this time. No leukocytosis, tenderness, or fever suggesting SBP. EKG showing tachycardia, cardiac enzyme indeterminate at approximately patient' s previous level, will be trended. Patient noted to the having some increased hypoxia, placed on oxygen is not hypoxic, becoming more agitated, given Ativan, discussed with patient given Dr. Malgorzata Varela, cardiac enzyme was trended and is not elevated. uncertain disposition at this time. I reevaluated patient again, patient is now worsened with more evidence of CHF on auscultation, more hypoxia, still hypertensive and tachycardic, placed on BiPAP, giving nitroglycerin, Dr. Mcgarry notified, will consult with Dr. Gaitan. 08/17/[address] Gaitan, concerned about patient's elevated blood pressure and lack of ICU beds. Discussed with Dr. Mcgarry again, patient will be placed on nitroglycerin drip, given enalapril, reevaluated. 08/17/16 04:20 Patient is now with blood pressure at 142/96 on 40 mcg/min of nitro drip, tolerating BiPAP very well, no hypoxia, states he does not have any discomfort at this time. Patient clinically much improved with no tachypnea or signs of distress. Tachycardia has reduced as well. Discussed with Dr. Gaitan, internal medicine, he states that he will come evaluate the patient for potential admission to the IMCU. Dr. Gaitan states he will discussed with day providers because of potential lack of ICU bed. 08/17/16 07:30 Dr. Gaitan admitted patient to ICU. - Vital Signs Vital signs: Temp Pulse Resp BP Pulse Ox 98.1 F 123 H 20 137/101 H 97 08/17/16 01:58 08/17/16 01:58 08/17/16 07:15 08/17/16 07:15 08/17/16 07:15 - Laboratory Result Diagrams: 08/16/16 20:44 08/16/16 20:44 Laboratory results interpreted by me: 08/16/16 08/16/16 08/16/16 20:44 20:44 20:44 Hgb 13.1 L MCH 26.0 L MCHC 31.7 L RDW 16.6 H PT Carbon Dioxide 20 L BUN 22 H Glucose 214 H Total Bilirubin 2.4 H Direct Bilirubin 1.0 H AST 190 H ALT 217 H Alkaline Phosphatase 211 H Creatine Kinase 290 H CK-MB (CK-2) 5.50 H NT-Pro-B Natriuret Pep 6280 H 08/16/16 20:44 Hgb MCH MCHC RDW PT 25.4 H Carbon Dioxide BUN Glucose Total Bilirubin Direct Bilirubin AST ALT Alkaline Phosphatase Creatine Kinase CK-MB (CK-2) NT-Pro-B Natriuret Pep Critical Care Note - Critical Care Note Total time excluding time spent on procedures (mins): 45 - Acute CHF exacerbation, hypoxia, tachycardia, hypertension Comments: Please allow 45 minutes of critical care time for evaluation and treatment of patient with acute CHF exacerbation secondary to cocaine use, hypoxia requiring BiPAP, blood pressure elevation and CHF exacerbation requiring nitroglycerin drip, blood pressure medications, Lasix, multiple re-evaluations, consultation and admission to the ICU Discharge - Discharge Clinical Impression: Cocaine abuse, Shortness of breath, Tachycardia Acute congestive heart failure Qualifiers: Congestive heart failure type: diastolic Qualified Code(s): I50.31 - Acute diastolic (congestive) heart failure Hypertension Qualifiers: Hypertension type: unspecified secondary hypertension Qualified Code(s): I15.9 - Secondary hypertension, unspecified Admitting Provider: Hospitalist Unit Admitted: ICU
--- NOTE | 2016-08-16 21:05 | RADIOLOGY REPORT (SQ) ---
EXAM DESCRIPTION: CHEST SINGLE VIEW COMPLETED DATE/TIME: 08/16/2016 8:53 pm REASON FOR STUDY: shortness of breath COMPARISON: 06/27/2016. NUMBER OF VIEWS: One view. TECHNIQUE: Single frontal radiographic view of the chest acquired. LIMITATIONS: None. FINDINGS: LUNGS AND PLEURA: No opacities, masses or pneumothorax. No pleural effusion. MEDIASTINUM AND HILAR STRUCTURES: No masses. Contour normal. HEART AND VASCULAR STRUCTURES: Heart enlarged without failure. Minimal vascular prominence. BONES: No acute findings. HARDWARE: None in the chest. OTHER: No other significant finding. IMPRESSION: HEART ENLARGED WITHOUT FAILURE. NO OTHER SIGNIFICANT RADIOGRAPHIC FINDING IN THE CHEST. TECHNICAL DOCUMENTATION: JOB ID: [id number] [employer]- All Rights Reserved
[2016-08-16 21:09] LABS: ABSOLUTE BASOPHILS # (AUTO) 0.1 10^3/uL (0.0-0.2); ABSOLUTE EOSINOPHILS # (AUTO) 0.1 10^3/uL (0.0-0.6); ABSOLUTE LYMPHOCYTES (AUTO) 1.4 10^3/uL (0.5-4.7); ABSOLUTE MONOCYTES (AUTO) 0.5 10^3/uL (0.1-1.4); ABSOLUTE NEUT (AUTO) 3.8 10^3/uL (1.7-8.2); BASOPHILS % (AUTO) 0.9 % (0-2); HEMATOCRIT 41.5 % (37.9-51.0); HEMOGLOBIN 13.1 g/dL (13.5-17.0); HGB HCT DIFFERENCE -2.2; MEAN CORPUSCULAR HGB CONC 31.7 g/dL (32.0-36.0); MEAN CORPUSCULAR VOLUME 82 fl (80-97); RED BLOOD COUNT 5.06 10^6/uL (4.35-5.55); RED CELL DISTRIBUTION WIDTH 16.6 % (11.5-14.0); SEGMENTED NEUTROPHILS % (AUTO) 66.1 % (42-78); WHITE BLOOD COUNT 5.7 10^3/uL (4.0-10.5)
[2016-08-16 21:24] LABS: ALANINE AMINOTRANSFERASE 217 U/L (21-72); ALBUMIN 3.5 g/dL (3.5-5.0); ALKALINE PHOSPHATASE 211 U/L (38-126); ANION GAP 13 (5-19); ASPARTATE AMINO TRANSFERASE 190 U/L (17-59); BILIRUBIN,TOTAL 2.4 mg/dL (0.2-1.3); BLOOD UREA NITROGEN 22 mg/dL (7-20); CALCIUM 8.7 mg/dL (8.4-10.2); CARBON DIOXIDE 20 mmol/L (22-30); CHLORIDE 106 mmol/L (98-107); CREATINE KINASE 290 U/L (55-170); CREATININE RESULT 0.83 mg/dL (0.52-1.25); GLUCOSE 214 mg/dL (75-110); POTASSIUM 4.8 mmol/L (3.6-5.0); SODIUM 138.8 mmol/L (137-145)
[2016-08-16 21:35] LABS: CREATINE KINASE MB 5.5 ng/mL (<4.55)
[2016-08-16 21:39] LABS: TROPONIN I 0.035 ng/mL
--- NOTE | 2016-08-16 21:57 | EKG REPORT ---
SEVERITY:- ABNORMAL ECG - SINUS TACHYCARDIA ANTERIOR INFARCT, OLD : Confirmed by: Pamela Loza 16-Aug-2016 21:57:23
[2016-08-16 23:11] LABS: PROTHROMBIN TIME 25.4 SEC (11.4-15.4)
[2016-08-16 23:12] LABS: PARTIAL THROMBOPLASTIN TIME 35.6 SEC (23.5-35.8)
--- NOTE | 2016-08-17 00:29 | RADIOLOGY REPORT (SQ) ---
EXAM DESCRIPTION: U/S ABDOMEN COMPLETE W/O DOP COMPLETED DATE/TIME: 08/16/2016 11:59 pm REASON FOR STUDY: abd pain/swelling, abn labs, ? ascites COMPARISON: None. TECHNIQUE: Dynamic and static grayscale images acquired of the abdomen and recorded on PACS. Additio fatoumata selected color Doppler and spectral images recorded. LIMITATIONS: Bowel gas. FINDINGS: PANCREAS: Obscured. LIVER: Mild diffuse heterogeneity. LIVER VASCULATURE: Normal directional flow of the main portal vein and hepatic veins. Mildly phasic portal venous flow, less than 40 centimeters/second, within normal limits. GALLBLADDER: No stones. Normal wall thickness. Small para cholecystic fluid. ULTRASOUND-DETECTED ALCALA'S SIGN: Negative. INTRAHEPATIC DUCTS AND COMMON DUCT: 0.4 mm diameter CBD and intrahepatic ducts normal caliber. No miguel ling defects. INFERIOR VENA CAVA: Normal flow. AORTA: Partially obscured. RIGHT KIDNEY: Normal size. Normal echogenicity. No solid or suspicious masses. No hydronephros is. No calcifications. LEFT KIDNEY: Normal size. Normal echogenicity. No solid or suspicious masses. No hydronephrosi s. No calcifications. SPLEEN: Normal size. No solid masses. PERITONEAL AND PLEURAL SPACES: Small perihepatic, perisplenic, pericholecystic, right lower quadrant, and left lower quadrant ascites. OTHER: No other significant finding. IMPRESSION: Small diffuse ascites. Small nonspecific heterogeneity of the liver. Limitation. TECHNICAL DOCUMENTATION: JOB ID: [id number] [employer]- All Rights Reserved
[2016-08-17] MEDS ORDERED: LORAZEPAM INJ 2 MG/1 ML VIAL IV ONE (01:58)
[2016-08-17] MEDS ORDERED: FUROSEMIDE INJ/PF 40 MG/4 ML SDV IV ONE ×2 (02:19)
[2016-08-17] MEDS ORDERED: NITROGLYCERIN 2% OINTMENT 1 GM PACKET TP ONE (02:49)
[2016-08-17] MEDS ORDERED: NITROGLYCERIN/D5W 250 ML IV PRN ×2 (02:57→07:55)
[2016-08-17] MEDS ORDERED: ENALAPRILAT DIHYDRATE INJ/PF 1.25 MG/1 ML SDV IV ONE (02:57)
[2016-08-17 03:00] LABS: URINE BARBITURATES SCREEN NEGATIVE; URINE METHADONE SCREEN NEGATIVE; URINE OPIATES LOW NEGATIVE; URINE PHENCYCLIDINE SCREEN NEGATIVE
[2016-08-17] MEDS ORDERED: IPRATROPIUM/ALBUTEROL 0.5-2.5 MG/3 ML AMPUL NEB ONE (03:06)
[2016-08-17] MEDS ORDERED: IPRATROPIUM/ALBUTEROL 0.5-2.5 MG/3 ML AMPUL NEB PRN (08:00)
[2016-08-17 08:31] LABS: ABSOLUTE BASOPHILS # (AUTO) 0.1 10^3/uL (0.0-0.2); ABSOLUTE EOSINOPHILS # (AUTO) 0.1 10^3/uL (0.0-0.6); ABSOLUTE MONOCYTES (AUTO) 0.5 10^3/uL (0.1-1.4); ABSOLUTE NEUT (AUTO) 3.5 10^3/uL (1.7-8.2); BASOPHILS % (AUTO) 1.5 % (0-2); EOSINOPHILS % (AUTO) 1.8 % (0-6); HEMATOCRIT 38.6 % (37.9-51.0); HEMOGLOBIN 12.3 g/dL (13.5-17.0); HGB HCT DIFFERENCE -1.7; LYMPHOCYTES % (AUTO) 19.5 % (13-45); MEAN CORPUSCULAR HEMOGLOBIN 26.2 pg (27.0-33.4); MEAN CORPUSCULAR HGB CONC 31.9 g/dL (32.0-36.0); MEAN CORPUSCULAR VOLUME 82 fl (80-97); MONOCYTES % (AUTO) 10.3 % (3-13); RED BLOOD COUNT 4.71 10^6/uL (4.35-5.55); RED CELL DISTRIBUTION WIDTH 16.5 % (11.5-14.0); SEGMENTED NEUTROPHILS % (AUTO) 66.9 % (42-78); VENOUS BLOOD HCO3 26.8 mmol/L (20-32); VENOUS BLOOD PCO2 38.7 mmHg (35-63); VENOUS BLOOD PH 7.46 (7.30-7.42); WHITE BLOOD COUNT 5.2 10^3/uL (4.0-10.5)
[2016-08-17 08:43] LABS: PROTHROMBIN TIME 22.3 SEC (11.4-15.4)
[2016-08-17 08:44] LABS: PARTIAL THROMBOPLASTIN TIME 36.2 SEC (23.5-35.8)
--- NOTE | 2016-08-17 08:45 | PDOC H&P ---
History of Present Illness Admission Date/PCP: 08/17/16 07:45 PR Patient complains of: short of breath History of Present Illness: MARILOU CUTLER is a 46 year old -[place] male with known systolic congestive heart failure, 25%, with diastolic function not able to be adequately assessed per echocardiogram June 27 of this year, and with a known history by review of prior labs of cocaine use, who presents to the emergency room for sudden onset of pronounced shortness of breath the evening of the . Patient has been discussed with emergency room nurse practitioner who evaluated the patient. Patient is oriented to location and year, but gives intermittent confused answers to basic questions, along with occasional mumbling, and is able to provide no meaningful history in terms of acute or chronic events, review of systems, personal habits, family history, etc. No friends or family are present. Old inpatient records are reviewed. Describes earlier chest discomfort, but now that has resolved, and he is resting quietly, chest pain-free. Denies nausea vomiting, fever or chills. He admits to using cocaine again on the . Blood pressure noted to be quite elevated, necessitating a number of medications , including nitroglycerin drip. BiPAP also applied due to respiratory difficulty. Currently breathing more comfortably. Hospitalized on our service the through 30 June of this year, with final diagnoses including cocaine abuse, bipolar disorder, posttraumatic stress disorder, obstructive sleep apnea, not compliant with CPAP. History and physical and discharge summary have been reviewed.. Laboratory results are listed in [facility] and are reviewed. X-ray summary results are listed below, with full report(s) reviewed. . EKG reviewed and compared to prior tracing from June 27 of this year. Social history/personal habits: . Has children. Currently on disability due to health problems. No tobacco use. Cocaine use as noted above. Drinks beer, but I could not get an accurate description as to how much. No known drug allergies. Home medications initially autopopulated into [employer] may not accurately reflect patient's true medications, dosages, and/or frequencies. museum exhibit technician to reconcile medications. Unfortunately, patient not certain of medications/dosages/frequencies. REVIEW OF SYSTEMS: See history and present illness. No further information available this point in time. PHYSICAL EXAMINATION: 90.7 kg. Height is not recorded on the chart. Blood pressure 159/108 manually on the right; 156/102 manually on the left. Nitroglycerin drip currently at 20 mics per minute. Respirations are 23 and unlabored. 100% saturation on BiPAP, 50% FiO2. Pulse 110 and regular. Temperature 98.1. Slightly overweight otherwise well-nourished well-developed though somewhat chronically ill-appearing -[place] male who appears a bit older than his stated age. Fatigued appearance. A bit somnolent at times, but otherwise reasonably awake and alert. Maintaining airway well. Female emergency room [employer] Y[employer] is present. Skin is warm and dry. No grossly obvious evidence of rash in areas of skin examined. No subcutaneous nodules palpated. ENT: Hearing grossly normal to normal conversation. Tongue midline on protrusion pink and slightly tacky. Eyes: No scleral icterus. Pupils equal and reactive to light at 4 mm. [place] conjunctivae. Neck is supple and nontender to gentle active range of motion and palpation. Midline trachea. No palpable thyroid nodule mass enlargement or tenderness. Lymphatic: No palpable cervical or clavicular nodes. Neck and lymphatic exams limited by patient body habitus. Psychiatric: Intermittent confused answers to basic questions. Occasionally mumbles. Rather flat affect at times. Lungs: Auscultation reveals clear and equal breath sounds bilaterally. No use of accessory respiratory muscles. Cardiovascular: Heart regular rate and rhythm, without gallop murmur or rub. No carotid or abdominal aortic bruits. No ankle or pedal edema. Faintly palpable dorsalis pedis pulses. Abdomen:soft slightly distended nontender with positive bowel sounds. Unable to adequately evaluate abdomen for masses or organomegaly due to distention. Extremities: Feet are warm and dry. No calf tenderness to compression. No grossly obvious visual evidence of calf swelling. Gentle manipulation of lower extremities fails to reveal any obvious evidence of injury or instability to knees hips or ankles. Neurologic: Moves upper extremities grossly normally. Patellar reflexes absent. Absent Babinski. Light touch is intact at feet. Dorsiflexion and plantarflexion of feet 5 / 5 and symmetric. Past Medical History Past Medical History: Information from current and old records. Patient gives intermittently confused , sometimes contradictory, answers to basic questions. Cardiac Medical History: Reports: Congestive Heart Failure, Hypertension Pulmonary Medical History: Reports: Sleep Apnea - Noncompliant with CPAP due to discomfort of mask. Endocrine Medical History: Reports: Diabetes Mellitus Type 1, Diabetes Mellitus Type 2 GI Medical History: Reports: Gastroesophageal Reflux Disease Musculoskeltal Medical History: Reports: Arthritis Psychiatric Medical History: Reports: Bipolar Disorder, Depression, Post Traumatic Stress Disorder, Substance Abuse - Cocaine Denies: Tobacco Dependency Past Surgical History Past Surgical History: Reports: Orthopedic Surgery - Right knee Social History Information Source: Patient, Emergency Med Personnel, [facility] Records Lives with: Family Smoking Status: Unknown if Ever Smoked Frequency of Alcohol Use: Occasional - Not able to adequately determine how much patient drinks. Hx Recreational Drug Use: Yes Drugs: Cocaine Hx Prescription Drug Abuse: No - Advance Directive Resuscitation Status: Full Code Surrogate healthcare decision maker:: . Family History Family History: Reviewed & Not Pertinent Parental Family History Reviewed: Yes - Mother alive and healthy. Father of uncertain cause. Children Family History Reviewed: Yes - Healthy Sibling(s) Family History Reviewed.: Yes - Healthy Medication/Allergy Home Medications: Folic Acid 1 mg PO DAILY 08/17/16 Furosemide [Lasix] 40 mg PO Q12 08/17/16 Gabapentin [Neurontin 300 mg Capsule] 300 mg PO QAM 08/17/16 Isosorbide Mononitrate [Imdur 30 mg Tablet.er] 15 mg PO DAILY 08/17/16 Metformin HCl [Metformin HCl ER] 1,000 mg PO Q12 08/17/16 Multivit-Min/FA/Lycopen/Lutein [Centrum Silver Men Tablet] 1 each PO DAILY 08/17 Omeprazole 20 mg PO Q12 08/17/16 Quetiapine Fumarate [Seroquel] 300 mg PO QHS 08/17/16 Thiamine HCl [Thiamine 100 mg Tablet] 100 mg PO DAILY 08/17/16 Venlafaxine HCl [Venlafaxine HCl ER] 300 mg PO QAM 08/17/16 Levofloxacin [Levaquin 750 mg Tablet] 750 mg PO DAILY #7 tablet 08/20/16 Losartan Potassium [Cozaar 50 mg Tablet] 50 mg PO DAILY #50 tablet 08/20/16 Metoprolol Tartrate [Lopressor 50 mg Tablet] 50 mg PO Q12 #60 tablet 08/20/16 Multivitamin [Tab-A-Sandor (Multiple Vitamin) Tablet] 1 tab PO DAILY tablet 08/20 Allergies/Adverse Reactions: No Known Allergies Allergy (Verified 06/27/16 11:45) Physical Exam Vital Signs: Temp Pulse Resp BP Pulse Ox 98.1 F 123 H 12 157/122 H 99 06/30/17 01:58 08/17/16 01:58 08/17/16 07:29 08/17/16 07:30 08/17/16 07:30 Results Impressions: Chest X-Ray 08/16/16 20:29 IMPRESSION: HEART ENLARGED WITHOUT FAILURE. NO OTHER SIGNIFICANT RADIOGRAPHIC FINDING IN THE CHEST. Abdomen Ultrasound 08/16/16 22:20 IMPRESSION: Small diffuse ascites. Small nonspecific heterogeneity of the liver. Limitation. Assessment & Plan - Diagnosis (1) Acute on chronic systolic (congestive) heart failure Is this a current diagnosis for this admission?: YesPlan: Likely result of the hypertensive emergency. Serial troponins. Gradual reduction in elevated blood pressure with nitroglycerin drip. (2) Acute respiratory failure Qualifiers: Respiratory failure complication: hypoxia Qualified Code(s): J96.01 - Acute respiratory failure with hypoxia Is this a current diagnosis for this admission?: YesPlan: Wean from BiPAP as tolerated. (3) Coagulopathy Is this a current diagnosis for this admission?: YesPlan: Uncertain specific cause. Will repeat PT/INR and PTT. Patient denies being on blood thinners. (4) Cocaine abuse Is this a current diagnosis for this admission?: Yes (5) Elevated LFTs Is this a current diagnosis for this admission?: YesPlan: Could be secondary to congestive heart failure. Will check hepatitis profile also. (6) Hypertensive emergency Is this a current diagnosis for this admission?: YesPlan: Titrate nitroglycerin drip. Appropriate vital sign parameters listed in chart. Will necessitate intensive care unit admission. I have strongly encouraged patient not to get out of bed without notifying staff , to avoid a fall with injury. Knee high SCDs for DVT prophylaxis; with elevated PT/INR and PTT, we will forego Lovenox or heparin at this point in time. Impression and plans were discussed with patient who concurs. Time spent in evaluation and management of patient: 65 critical-care minutes. (7) Bipolar disorder Qualifiers: Active/Remission status: remission status unspecified Qualified Code (s): F31.9 - Bipolar disorder, unspecified Is this a current diagnosis for this admission?: YesPlan: Resume home medications as appropriate once these have been determined and reviewed. (8) DALIA (obstructive sleep apnea) Is this a current diagnosis for this admission?: Yes (9) Posttraumatic stress disorder Is this a current diagnosis for this admission?: YesPlan: Resume home medications as appropriate once these have been determined and reviewed. - Inpatient Certification Based on my medical assessment, after consideration of the patient's comorbidities, presenting symptoms, or acuity I expect that the services needed warrant INPATIENT care.: Yes I certify that my determination is in accordance with my understanding of Medicare's requirements for reasonable and necessary INPATIENT services [42 CFR 412.3e].: Yes Medical Necessity: Need Close Monitoring Due to Risk of Patient Decompensation, Need For Continuous Telemetry Monitoring, Risk of Diagnosis Which Will Require Inpatient Eval/Care/Monitoring Post Hospital Care: D/C or Transfer Summary
[2016-08-17 09:05] LABS: ALANINE AMINOTRANSFERASE 183 U/L (21-72); ALBUMIN 3.2 g/dL (3.5-5.0); ALKALINE PHOSPHATASE 184 U/L (38-126); ANION GAP 9 (5-19); ASPARTATE AMINO TRANSFERASE 174 U/L (17-59); BILIRUBIN,DIRECT 1.1 mg/dL (0.0-0.4); BILIRUBIN,TOTAL 2.4 mg/dL (0.2-1.3); BLOOD UREA NITROGEN 21 mg/dL (7-20); CALCIUM 8.4 mg/dL (8.4-10.2); CARBON DIOXIDE 27 mmol/L (22-30); CHLORIDE 104 mmol/L (98-107); CREATININE RESULT 0.87 mg/dL (0.52-1.25); GLUCOSE 174 mg/dL (75-110); MAGNESIUM 2.1 mg/dL (1.6-2.3); POTASSIUM 4.5 mmol/L (3.6-5.0); SODIUM 140.3 mmol/L (137-145); TOTAL PROTEIN 6.7 g/dL (6.3-8.2)
[2016-08-17] MEDS ORDERED: FUROSEMIDE INJ/PF 40 MG/4 ML SDV IV SCH (10:00)
[2016-08-17] MEDS: LOSARTAN POTASSIUM 50 MG TABLET PO SCH (10:35)
[2016-08-17] MEDS: DOCUSATE SODIUM 100 MG CAPSULE PO SCH ×2 (10:35→17:22)
[2016-08-17] MEDS: FOLIC ACID 1 MG TABLET PO SCH (10:36)
[2016-08-17] MEDS: MULTIVITAMIN TABLET PO SCH (10:36)
[2016-08-17] MEDS: THIAMINE HCL 100 MG TABLET PO SCH (10:37)
[2016-08-17] MEDS ORDERED: HYDRALAZINE HCL INJ/PF 20 MG/1 ML SDV IV PRN (17:59)
[2016-08-17] MEDS: METOPROLOL TARTRATE 25 MG TABLET PO SCH ×2 (18:34→23:55)
[2016-08-18 04:50] LABS: HEMATOCRIT 38.8 % (37.9-51.0); HEMOGLOBIN 12.4 g/dL (13.5-17.0); HGB HCT DIFFERENCE -1.6; MEAN CORPUSCULAR VOLUME 81 fl (80-97); RED BLOOD COUNT 4.78 10^6/uL (4.35-5.55); RED CELL DISTRIBUTION WIDTH 16.7 % (11.5-14.0); WHITE BLOOD COUNT 6.4 10^3/uL (4.0-10.5)
[2016-08-18 04:56] LABS: PROTHROMBIN TIME 20.2 SEC (11.4-15.4)
[2016-08-18 05:02] LABS: ANION GAP 12 (5-19); BLOOD UREA NITROGEN 19 mg/dL (7-20); CALCIUM 8.7 mg/dL (8.4-10.2); CARBON DIOXIDE 30 mmol/L (22-30); CHLORIDE 100 mmol/L (98-107); CREATININE RESULT 0.99 mg/dL (0.52-1.25); GLUCOSE 179 mg/dL (75-110); POTASSIUM 3.9 mmol/L (3.6-5.0); SODIUM 141.7 mmol/L (137-145)
[2016-08-18] MEDS: METOPROLOL TARTRATE 25 MG TABLET PO SCH ×3 (06:08→17:39)
--- NOTE | 2016-08-18 07:32 | RADIOLOGY REPORT (SQ) ---
EXAM DESCRIPTION: CHEST SINGLE VIEW COMPLETED DATE/TIME: 08/18/2016 6:53 am REASON FOR STUDY: CHF COMPARISON: 08/16/2016. EXAM PARAMETERS: NUMBER OF VIEWS: One view. TECHNIQUE: Single frontal radiographic view of the chest acquired. RADIATION DOSE: NA LIMITATIONS: None. FINDINGS: LUNGS AND PLEURA: Moderate opacity -layered effusion of the right lower hemithorax, 40%. Mild pulmonary edema pattern. Moderate lung volume. MEDIASTINUM AND HILAR STRUCTURES: No masses. Contour normal. HEART AND VASCULAR STRUCTURES: Moderate enlargement of the cardiac silhouette. BONES: No acute findings. HARDWARE: None in the chest. OTHER: No other significant finding. IMPRESSION: No significant interval change. TECHNICAL DOCUMENTATION: JOB ID: [id number]
--- NOTE | 2016-08-18 08:27 | PDOC PROGRESS REPORT ---
Subjective Progress Note for:: 08/18/16 Subjective:: Patient feels better this morning. Patient is off BiPAP. Blood pressure improved. Still on the nitroglycerin drip however. Denies any chills or fever. Cough is productive of greenish phlegm. Lower extremity edema less. No chest pain, nausea vomiting, diaphoresis. Physical Exam Vital Signs: Temp Pulse Resp BP Pulse Ox 99.9 F 101 H 19 129/99 H 96 08/18/16 08:00 08/18/16 08:00 08/18/16 08:07 08/18/16 08:07 08/18/16 08:07 Intake & Output 08/17/16 08/18/16 08/19/16 06:59 06:59 06:59 Intake Total 1374 Output Total 4705 Balance -3331 Weight 97.6 kg General appearance: PRESENT: no acute distress, obese Head exam: PRESENT: normocephalic Eye exam: PRESENT: EOMI Mouth exam: PRESENT: moist, neck supple Neck exam: ABSENT: JVD Respiratory exam: PRESENT: clear to auscultation dewayne - Anteriorly, rales - Posteriorly in the lower lung dorantes Cardiovascular exam: PRESENT: RRR. ABSENT: gallop GI/Abdominal exam: PRESENT: soft. ABSENT: distended, tenderness Extremities exam: PRESENT: other - Trace lower extremity edema Neurological exam: PRESENT: alert, awake, oriented to situation Skin exam: PRESENT: dry, warm. ABSENT: cyanosis Results Laboratory Results: 08/18/16 04:37 08/18/16 04:37 08/17/16 08/17/16 08/17/16 08:10 08:10 08:10 WBC 5.2 RBC 4.71 Hgb 12.3 L Hct 38.6 MCV 82 MCH 26.2 L MCHC 31.9 L RDW 16.5 H Plt Count 277 Seg Neutrophils % 66.9 Lymphocytes % 19.5 Monocytes % 10.3 Eosinophils % 1.8 Basophils % 1.5 Absolute Neutrophils 3.5 Absolute Lymphocytes 1.0 Absolute Monocytes 0.5 Absolute Eosinophils 0.1 Absolute Basophils 0.1 VBG pH VBG pCO2 VBG HCO3 VBG Base Excess Sodium 140.3 Potassium 4.5 Chloride 104 Carbon Dioxide 27 Anion Gap 9 BUN 21 H Creatinine 0.87 Est GFR ( Amer) > 60 Est GFR (Non-Af Amer) > 60 Glucose 174 H Calcium 8.4 Magnesium 2.1 Total Bilirubin 2.4 H AST 174 H ALT 183 H Alkaline Phosphatase 184 H Total Protein 6.7 Albumin 3.2 L TSH 5.18 H 08/17/16 08/18/16 08/18/16 08:10 04:37 04:37 WBC 6.4 RBC 4.78 Hgb 12.4 L Hct 38.8 MCV 81 MCH 26.0 L MCHC 32.0 RDW 16.7 H Plt Count 296 Seg Neutrophils % Lymphocytes % Monocytes % Eosinophils % Basophils % Absolute Neutrophils Absolute Lymphocytes Absolute Monocytes Absolute Eosinophils Absolute Basophils VBG pH 7.46 H VBG pCO2 38.7 VBG HCO3 26.8 VBG Base Excess 3.0 Sodium 141.7 Potassium 3.9 Chloride 100 Carbon Dioxide 30 Anion Gap 12 BUN 19 Creatinine 0.99 Est GFR ( Amer) > 60 Est GFR (Non-Af Amer) > 60 Glucose 179 H Calcium 8.7 Magnesium Total Bilirubin AST ALT Alkaline Phosphatase Total Protein Albumin TSH 08/17/16 08:10 Troponin I 0.041 Impressions: Abdomen Ultrasound 08/16/16 22:20 IMPRESSION: Small diffuse ascites. Small nonspecific heterogeneity of the liver. Limitation. Chest X-Ray 08/18/16 06:00 IMPRESSION: No significant interval change. Assessment & Plan - Diagnosis (1) Acute respiratory failure Qualifiers: Respiratory failure complication: hypoxia Qualified Code(s): J96.01 - Acute respiratory failure with hypoxia Is this a current diagnosis for this admission?: Yes (2) Acute on chronic systolic (congestive) heart failure Is this a current diagnosis for this admission?: Yes (3) Coagulopathy Is this a current diagnosis for this admission?: Yes (4) Cocaine abuse Is this a current diagnosis for this admission?: Yes (5) Hypertensive emergency Is this a current diagnosis for this admission?: Yes (6) Diabetes mellitus Qualifiers: Diabetes mellitus type: type 2 Diabetes mellitus complication status: with unspecified complications Diabetes mellitus roasterman insulin use: without snf use Qualified Code(s): E11.8 - Type 2 diabetes mellitus with unspecified complications Is this a current diagnosis for this admission?: Yes (7) Bipolar disorder Qualifiers: Active/Remission status: remission status unspecified Qualified Code (s): F31.9 - Bipolar disorder, unspecified Is this a current diagnosis for this admission?: Yes (8) DALIA (obstructive sleep apnea) Is this a current diagnosis for this admission?: Yes (9) Posttraumatic stress disorder Is this a current diagnosis for this admission?: Yes - Time Time Spent with patient: 25-34 minutes - Plan Summary Plan Summary: We will wean nitroglycerin drip to off. Continue beta-tone. Increase Lasix and add Zaroxolyn. We will begin empiric antibiotic for possible bronchitis. Discontinue [place] catheter. Increase ambulation. Transfer to [facility].
[2016-08-18] MEDS: DOCUSATE SODIUM 100 MG CAPSULE PO SCH ×2 (09:05→17:39)
[2016-08-18] MEDS: THIAMINE HCL 100 MG TABLET PO SCH (09:05)
[2016-08-18] MEDS: FOLIC ACID 1 MG TABLET PO SCH (09:05)
[2016-08-18] MEDS: MULTIVITAMIN TABLET PO SCH (09:05)
[2016-08-18] MEDS: LOSARTAN POTASSIUM 50 MG TABLET PO SCH (09:06)
[2016-08-18] MEDS: ISOSORBIDE MONONITRATE 30 MG TAB.ER.24H PO SCH (09:49)
[2016-08-18] MEDS: LEVOFLOXACIN 750 MG TABLET PO SCH (09:49)
[2016-08-18] MEDS: METOLAZONE 5 MG TABLET PO SCH ×2 (09:50→23:15)
[2016-08-18] MEDS: VENLAFAXINE HCL 75 MG CAP.SR.24H PO SCH (09:50)
[2016-08-18] MEDS: FUROSEMIDE INJ/PF 40 MG/4 ML SDV IV SCH ×2 (09:51→23:16)
[2016-08-18] MEDS ORDERED: THIAMINE HCL 100 MG TABLET PO SCH (10:00)
[2016-08-18] MEDS ORDERED: (PENDING PHARMACY ID) (Quetiapine Fumarate [Seroquel] 300 MG) PO SCH (22:00)
[2016-08-18] MEDS: QUETIAPINE FUMARATE 100 MG TABLET PO SCH (23:15)
[2016-08-19] MEDS: METOPROLOL TARTRATE 25 MG TABLET PO SCH ×4 (01:59→17:39)
[2016-08-19 06:57] LABS: ANION GAP 9 (5-19); BLOOD UREA NITROGEN 22 mg/dL (7-20); CALCIUM 8.1 mg/dL (8.4-10.2); CARBON DIOXIDE 30 mmol/L (22-30); CHLORIDE 99 mmol/L (98-107); CREATININE RESULT 0.97 mg/dL (0.52-1.25); GLUCOSE 164 mg/dL (75-110); MAGNESIUM 1.7 mg/dL (1.6-2.3); POTASSIUM 3.3 mmol/L (3.6-5.0); SODIUM 137.7 mmol/L (137-145)
[2016-08-19] MEDS ORDERED: VENLAFAXINE HCL 300 MG PO SCH (08:00)
--- NOTE | 2016-08-19 11:22 | PDOC PROGRESS REPORT ---
Subjective Progress Note for:: 08/19/16 Subjective:: Patient continues to improve. Denies any PND orthopnea. No chest pain. No chills or fever. No respiratory distress, nausea or vomiting, or sweating. Physical Exam Vital Signs: Temp Pulse Resp BP Pulse Ox 97.6 F 96 16 115/76 97 08/19/16 07:29 08/19/16 09:39 08/19/16 09:39 08/19/16 07:29 08/19/16 07:29 Intake & Output 08/18/16 08/19/16 08/20/16 06:59 06:59 06:59 Intake Total 1374 259 Output Total 5816 0267 Balance -8710 -7454 Weight 97.6 kg 92.9 kg General appearance: PRESENT: no acute distress, cooperative Head exam: PRESENT: normocephalic Eye exam: PRESENT: EOMI Mouth exam: PRESENT: moist, neck supple Neck exam: ABSENT: JVD Respiratory exam: PRESENT: rales - Lower lung dorantes, minimal, rhonchi - Mild, unlabored. ABSENT: wheezes Cardiovascular exam: PRESENT: RRR. ABSENT: gallop GI/Abdominal exam: PRESENT: soft. ABSENT: distended, tenderness Extremities exam: PRESENT: other - Trace pretibial edema Neurological exam: PRESENT: alert, awake, oriented to situation Skin exam: PRESENT: dry, warm. ABSENT: cyanosis Results Laboratory Results: 08/18/16 04:37 08/19/16 05:26 08/19/16 05:26 Sodium 137.7 Potassium 3.3 L Chloride 99 Carbon Dioxide 30 Anion Gap 9 BUN 22 H Creatinine 0.97 Est GFR ( Amer) > 60 Est GFR (Non-Af Amer) > 60 Glucose 164 H Calcium 8.1 L Magnesium 1.7 08/17/16 08:10 Troponin I 0.041 Impressions: Abdomen Ultrasound 08/16/16 22:20 IMPRESSION: Small diffuse ascites. Small nonspecific heterogeneity of the liver. Limitation. Chest X-Ray 08/18/16 06:00 IMPRESSION: No significant interval change. Assessment & Plan - Diagnosis (1) Acute respiratory failure Qualifiers: Respiratory failure complication: hypoxia Qualified Code(s): J96.01 - Acute respiratory failure with hypoxia Is this a current diagnosis for this admission?: Yes (2) Acute on chronic systolic (congestive) heart failure Is this a current diagnosis for this admission?: Yes (3) Coagulopathy Is this a current diagnosis for this admission?: Yes (4) Cocaine abuse Is this a current diagnosis for this admission?: Yes (5) Hypertensive emergency Is this a current diagnosis for this admission?: Yes (6) Diabetes mellitus Qualifiers: Diabetes mellitus type: type 2 Diabetes mellitus complication status: with unspecified complications Diabetes mellitus usp insulin use: without usp use Qualified Code(s): E11.8 - Type 2 diabetes mellitus with unspecified complications; Z79.4 - jail (current) use of insulin Is this a current diagnosis for this admission?: Yes (7) Bipolar disorder Qualifiers: Active/Remission status: remission status unspecified Qualified Code (s): F31.9 - Bipolar disorder, unspecified Is this a current diagnosis for this admission?: Yes (8) DALIA (obstructive sleep apnea) Is this a current diagnosis for this admission?: Yes (9) Posttraumatic stress disorder Is this a current diagnosis for this admission?: Yes - Time Time Spent with patient: 25-34 minutes - Plan Summary Plan Summary: Increase activity. Begin physical therapy. Replace potassium and recheck electrolytes. We will discontinue intravenous Lasix and wean oxygen. Continue supportive care. Possible discharge in the morning.
[2016-08-19] MEDS: ISOSORBIDE MONONITRATE 30 MG TAB.ER.24H PO SCH (11:24)
[2016-08-19] MEDS: VENLAFAXINE HCL 75 MG CAP.SR.24H PO SCH (11:24)
[2016-08-19] MEDS: MULTIVITAMIN TABLET PO SCH (11:25)
[2016-08-19] MEDS: GABAPENTIN 300 MG CAPSULE PO SCH (11:25)
[2016-08-19] MEDS: METOLAZONE 5 MG TABLET PO SCH ×2 (11:25→23:01)
[2016-08-19] MEDS: FOLIC ACID 1 MG TABLET PO SCH (11:26)
[2016-08-19] MEDS: LEVOFLOXACIN 750 MG TABLET PO SCH (11:26)
[2016-08-19] MEDS: THIAMINE HCL 100 MG TABLET PO SCH (11:26)
[2016-08-19] MEDS: LOSARTAN POTASSIUM 50 MG TABLET PO SCH (11:27)
[2016-08-19] MEDS: DOCUSATE SODIUM 100 MG CAPSULE PO SCH ×2 (11:27→17:39)
[2016-08-19] MEDS: POTASSIUM CHLORIDE 10 MEQ TABLET.SA PO SCH ×2 (12:40→15:51)
[2016-08-19] MEDS: FUROSEMIDE 40 MG TABLET PO SCH (17:39)
[2016-08-19] MEDS: QUETIAPINE FUMARATE 100 MG TABLET PO SCH (23:00)
[2016-08-20] MEDS: METOPROLOL TARTRATE 25 MG TABLET PO SCH ×3 (00:41→10:36)
[2016-08-20 06:18] LABS: ANION GAP 12 (5-19); BLOOD UREA NITROGEN 29 mg/dL (7-20); CALCIUM 8.7 mg/dL (8.4-10.2); CARBON DIOXIDE 28 mmol/L (22-30); CHLORIDE 99 mmol/L (98-107); CREATININE RESULT 1.16 mg/dL (0.52-1.25); GLUCOSE 208 mg/dL (75-110)
[2016-08-20 06:37] LABS: POTASSIUM 4.2 mmol/L (3.6-5.0)
[2016-08-20] MEDS: DOCUSATE SODIUM 100 MG CAPSULE PO SCH ×2 (10:26→17:53)
[2016-08-20] MEDS: LEVOFLOXACIN 750 MG TABLET PO SCH (10:27)
[2016-08-20] MEDS: VENLAFAXINE HCL 75 MG CAP.SR.24H PO SCH (10:27)
[2016-08-20] MEDS: THIAMINE HCL 100 MG TABLET PO SCH (10:27)
[2016-08-20] MEDS: MULTIVITAMIN TABLET PO SCH (10:27)
[2016-08-20] MEDS: GABAPENTIN 300 MG CAPSULE PO SCH (10:28)
[2016-08-20] MEDS: FUROSEMIDE 40 MG TABLET PO SCH (10:28)
[2016-08-20] MEDS: FOLIC ACID 1 MG TABLET PO SCH (10:28)
[2016-08-20] MEDS: ISOSORBIDE MONONITRATE 30 MG TAB.ER.24H PO SCH (10:29)
[2016-08-20] MEDS: LOSARTAN POTASSIUM 50 MG TABLET PO SCH (10:29)
[2016-08-20] MEDS ORDERED: METOPROLOL TARTRATE 25 MG TABLET PO SCH (15:30)
--- NOTE | 2016-08-20 15:36 | PDOC PROGRESS REPORT ---
Subjective Progress Note for:: 08/20/16 Subjective:: Patient is able to ambulate around by has shortness of breath on exertion. Denies chills or fever. No diarrhea. No chest pain PND nor orthopnea. There is no dizziness or lightheadedness. Physical Exam Vital Signs: Temp Pulse Resp BP Pulse Ox 97.9 F 98 20 131/97 H 98 08/20/16 12:58 08/20/16 12:58 08/20/16 12:58 08/20/16 12:58 08/20/16 12:58 Intake & Output 08/19/16 08/20/16 08/21/16 06:59 06:59 06:59 Intake Total 259 1790 Output Total 5655 1875 Balance -5396 -85 Weight 92.9 kg 93 kg General appearance: PRESENT: no acute distress, cooperative Head exam: PRESENT: normocephalic Eye exam: PRESENT: EOMI Mouth exam: PRESENT: neck supple Neck exam: ABSENT: JVD Respiratory exam: PRESENT: clear to auscultation dewayne - Anteriorly, rales - Minimal on the lower lung dorantes in the bases bilateral. ABSENT: rhonchi, wheezes Cardiovascular exam: PRESENT: RRR. ABSENT: gallop GI/Abdominal exam: PRESENT: normal bowel sounds, soft. ABSENT: tenderness Extremities exam: PRESENT: other - Trace to +1 edema Neurological exam: PRESENT: alert, awake, oriented to situation Skin exam: PRESENT: dry, warm. ABSENT: cyanosis Results Laboratory Results: 08/18/16 04:37 08/20/16 05:14 08/20/16 08/20/16 05:14 05:14 Sodium 139.0 Potassium 4.2 Chloride 99 Carbon Dioxide 28 Anion Gap 12 BUN 29 H Creatinine 1.16 Est GFR ( Amer) > 60 Est GFR (Non-Af Amer) > 60 Glucose 208 H Calcium 8.7 Free T4 1.14 08/17/16 08:10 Troponin I 0.041 Impressions: Abdomen Ultrasound 08/16/16 22:20 IMPRESSION: Small diffuse ascites. Small nonspecific heterogeneity of the liver. Limitation. Chest X-Ray 08/18/16 06:00 IMPRESSION: No significant interval change. Assessment & Plan - Diagnosis (1) Acute respiratory failure Qualifiers: Respiratory failure complication: hypoxia Qualified Code(s): J96.01 - Acute respiratory failure with hypoxia Is this a current diagnosis for this admission?: Yes (2) Acute on chronic systolic (congestive) heart failure Is this a current diagnosis for this admission?: Yes (3) Coagulopathy Is this a current diagnosis for this admission?: Yes (4) Cocaine abuse Is this a current diagnosis for this admission?: Yes (5) Hypertensive emergency Is this a current diagnosis for this admission?: Yes (6) Acute bronchitis Qualifiers: Bronchitis organism: unspecified organism Qualified Code(s): J20.9 - Acute bronchitis, unspecified Is this a current diagnosis for this admission?: Yes (7) Diabetes mellitus Qualifiers: Diabetes mellitus type: type 2 Diabetes mellitus complication status: with unspecified complications Diabetes mellitus snf insulin use: without intermediate card tender use Qualified Code(s): E11.8 - Type 2 diabetes mellitus with unspecified complications; Z79.4 - ad terminal makeup operator (current) use of insulin Is this a current diagnosis for this admission?: Yes (8) Bipolar disorder Qualifiers: Active/Remission status: remission status unspecified Qualified Code (s): F31.9 - Bipolar disorder, unspecified Is this a current diagnosis for this admission?: Yes (9) DALIA (obstructive sleep apnea) Is this a current diagnosis for this admission?: Yes (10) Posttraumatic stress disorder Is this a current diagnosis for this admission?: Yes - Time Time Spent with patient: 25-34 minutes - Plan Summary Plan Summary: We are going to continue diuretics and antibiotics. We will increase metoprolol. Patient at times is tachycardic. Continue supportive care. Physical therapy has evaluated the patient reportedly does not need home PT at this time.. Patient stable in the morning likely can be discharged home.
--- NOTE | 2016-08-20 15:52 | PDOC DISCHARGE SUMMARY ---
General - Admit/Disc Date/PCP Admission Date/Primary Care Provider: 08/17/16 08:00 Discharge Date: 08/21/16 - Discharge Diagnosis (1) Acute respiratory failure Is this a current diagnosis for this admission?: Yes (2) Acute on chronic systolic (congestive) heart failure Is this a current diagnosis for this admission?: Yes (3) Coagulopathy Is this a current diagnosis for this admission?: Yes (4) Cocaine abuse Is this a current diagnosis for this admission?: Yes (5) Hypertensive emergency Is this a current diagnosis for this admission?: Yes (6) Acute bronchitis Is this a current diagnosis for this admission?: Yes (7) Diabetes mellitus Is this a current diagnosis for this admission?: Yes (8) Bipolar disorder Is this a current diagnosis for this admission?: Yes (9) DALIA (obstructive sleep apnea) Is this a current diagnosis for this admission?: Yes (10) Posttraumatic stress disorder Is this a current diagnosis for this admission?: Yes - Additional Information Resuscitation Status: Full Code Discharge Diet: Cardiac - Low-fat low-salt Discharge Activity: Activity As Tolerated, Balance Activity w/Rest, Slowly Increase Activity Home Medications: Folic Acid 1 mg PO DAILY 08/17/16 Furosemide [Lasix] 40 mg PO Q12 08/17/16 Gabapentin [Neurontin 300 mg Capsule] 300 mg PO QAM 08/17/16 Isosorbide Mononitrate [Imdur 30 mg Tablet.er] 15 mg PO DAILY 08/17/16 Metformin HCl [Metformin HCl ER] 1,000 mg PO Q12 08/17/16 Multivit-Min/FA/Lycopen/Lutein [Centrum Silver Men Tablet] 1 each PO DAILY 08/17 Omeprazole 20 mg PO Q12 08/17/16 Quetiapine Fumarate [Seroquel] 300 mg PO QHS 08/17/16 Thiamine HCl [Thiamine 100 mg Tablet] 100 mg PO DAILY 08/17/16 Venlafaxine HCl [Venlafaxine HCl ER] 300 mg PO QAM 08/17/16 Levofloxacin [Levaquin 750 mg Tablet] 750 mg PO DAILY #7 tablet 08/20/16 Losartan Potassium [Cozaar 50 mg Tablet] 50 mg PO DAILY #50 tablet 08/20/16 Metoprolol Tartrate [Lopressor 50 mg Tablet] 50 mg PO Q12 #60 tablet 08/20/16 Multivitamin [Tab-A-Sandor (Multiple Vitamin) Tablet] 1 tab PO DAILY tablet 08/20 Additional Information: Stop cocaine History of Present Illness Patient complains of: Shortness of breath History of Present Illness: MARILOU CUTLER is a 46 year old -[place] male with known systolic congestive heart failure, 25%, with diastolic function not able to be adequately assessed per echocardiogram June 27 of this year, and with a known history by review of prior labs of cocaine use, who presents to the emergency room for sudden onset of pronounced shortness of breath the evening of the . Patient has been discussed with emergency room nurse practitioner who evaluated the patient. Patient is oriented to location and year, but gives intermittent confused answers to basic questions, along with occasional mumbling, and is able to provide no meaningful history in terms of acute or chronic events, review of systems, personal habits, family history, etc. No friends or family are present. Old inpatient records are reviewed. Describes earlier chest discomfort, but now that has resolved, and he is resting quietly, chest pain-free. Denies nausea vomiting, fever or chills. He admits to using cocaine again on the . Blood pressure noted to be quite elevated, necessitating a number of medications , including nitroglycerin drip. BiPAP also applied due to respiratory difficulty. Currently breathing more comfortably. Hospitalized on our service the through 30 June of this year, with final diagnoses including cocaine abuse, bipolar disorder, posttraumatic stress disorder, obstructive sleep apnea, not compliant with CPAP. History and physical and discharge summary have been reviewed.. Laboratory results are listed in [facility] and are reviewed. X-ray summary results are listed below, with full report(s) reviewed. . EKG reviewed and compared to prior tracing from June 27 of this year. For details please refer to history and physical examination performed by the admitting physician. Hospital Course Hospital Course: The patient was admitted to ICU. The patient was placed on nitroglycerin drip and intravenous diuretics. Patient was resumed on his beta-shruthi at home as well as ARB.Cardiac enzymes were obtained and were negative for myocardial infarction. Patient eventually improved and was able to be weaned from the BiPAP. Patient was subsequently transferred to the medical floor with telemetry. While in the orr the patient blood pressure remain uncontrolled and therefore he is beta-shruthi and ARB were increased. Intravenous diuretics were shifted to oral. Patient initially was on Zaroxolyn and this was discontinued. Physical therapy was begun. Patient was resumed on his CPAP. Course was noted for purulent expectoration likely from underlying bronchitis and the patient was started on oral antibiotic. The patient did not improve and was weaned off the oxygen and was maintained on his CPAP at bedtime. The rest of the hospital stays unremarkable. Physical Exam Vital Signs: Temp Pulse Resp BP Pulse Ox 97.9 F 100 20 131/97 H 98 08/20/16 12:58 08/20/16 14:00 08/20/16 12:58 08/20/16 12:58 08/20/16 12:58 Intake & Output 08/19/16 08/20/16 08/21/16 06:59 06:59 06:59 Intake Total 259 1790 Output Total 5669 1875 Balance -5396 -85 Weight 92.9 kg 93 kg General appearance: PRESENT: no acute distress, cooperative Head exam: PRESENT: normocephalic Eye exam: PRESENT: EOMI Mouth exam: PRESENT: moist, neck supple Neck exam: ABSENT: JVD Respiratory exam: PRESENT: clear to auscultation dewayne. ABSENT: rhonchi, wheezes Cardiovascular exam: PRESENT: RRR. ABSENT: gallop GI/Abdominal exam: PRESENT: hypoactive bowel sounds, soft. ABSENT: distended, tenderness Extremities exam: PRESENT: other - Trace to +1 edema Neurological exam: PRESENT: alert, awake, oriented to person, oriented to place , oriented to time, oriented to situation Skin exam: PRESENT: dry, warm. ABSENT: cyanosis Results Laboratory Results: 08/18/16 04:37 08/20/16 05:14 08/20/16 08/20/16 05:14 05:14 Sodium 139.0 Potassium 4.2 Chloride 99 Carbon Dioxide 28 Anion Gap 12 BUN 29 H Creatinine 1.16 Est GFR ( Amer) > 60 Est GFR (Non-Af Amer) > 60 Glucose 208 H Calcium 8.7 Free T4 1.14 08/17/16 08:10 Troponin I 0.041 Impressions: Abdomen Ultrasound 08/16/16 22:20 IMPRESSION: Small diffuse ascites. Small nonspecific heterogeneity of the liver. Limitation. Chest X-Ray 08/18/16 06:00 IMPRESSION: No significant interval change. Qualifiers PATEINT BEING DISCHARGED WITH ANY OF THE FOLLOWING DIAGNOSIS?: Heart Failure HF Pt being discharged on ACEI for LVEF less than 40%?: No Reason(s) for not prescribing ACEI:: Not indicated - On ARB HF Pt being discharged on ARBS for LVEF less than 40%?: Yes HF Pt with Afib discharged with Warfarin?: No Reason(s) for not prescribing Warfarin:: Not indicated - No atrial fibrillation HF Pt discharged on evidence-based Beta Shruthi:: Yes Plan Discharge Plan: Follow-up with primary care physician in 1 week. Time Spent: Less than 30 Minutes
[2016-08-20] MEDS: METOPROLOL TARTRATE 50 MG TABLET PO SCH (22:33)
[2016-08-20] MEDS: QUETIAPINE FUMARATE 100 MG TABLET PO SCH (22:33)
[2016-08-21] MEDS ORDERED: FUROSEMIDE 40 MG TABLET PO SCH (10:00)
[2016-08-21] MEDS: VENLAFAXINE HCL 75 MG CAP.SR.24H PO SCH (10:34)
[2016-08-21] MEDS: THIAMINE HCL 100 MG TABLET PO SCH (10:35)
[2016-08-21] MEDS: LOSARTAN POTASSIUM 50 MG TABLET PO SCH (10:35)
[2016-08-21] MEDS: DOCUSATE SODIUM 100 MG CAPSULE PO SCH (10:35)
[2016-08-21] MEDS: ISOSORBIDE MONONITRATE 30 MG TAB.ER.24H PO SCH (10:35)
[2016-08-21] MEDS: MULTIVITAMIN TABLET PO SCH (10:35)
[2016-08-21] MEDS: LEVOFLOXACIN 750 MG TABLET PO SCH (10:36)
[2016-08-21] MEDS: METOPROLOL TARTRATE 50 MG TABLET PO SCH (10:36)
[2016-08-21] MEDS: FOLIC ACID 1 MG TABLET PO SCH (10:37)
[2016-08-21] MEDS: GABAPENTIN 300 MG CAPSULE PO SCH (10:38)
[2016-08-21 11:26] VITALS: BP 143/93
--- NOTE | 2016-08-21 14:31 | PDOC DISCHARGE SUMMARY ---
General - Admit/Disc Date/PCP Admission Date/Primary Care Provider: 08/17/16 08:00 Discharge Date: 08/21/16 - Discharge Diagnosis (1) Acute bronchitis Is this a current diagnosis for this admission?: Yes (2) Acute on chronic systolic (congestive) heart failure Is this a current diagnosis for this admission?: Yes (3) Acute respiratory failure Is this a current diagnosis for this admission?: Yes (4) Coagulopathy Is this a current diagnosis for this admission?: Yes (5) Cocaine abuse Is this a current diagnosis for this admission?: Yes (6) Hypertensive emergency Is this a current diagnosis for this admission?: Yes (7) Diabetes mellitus Is this a current diagnosis for this admission?: Yes (8) Bipolar disorder Is this a current diagnosis for this admission?: Yes (9) DALIA (obstructive sleep apnea) Is this a current diagnosis for this admission?: Yes (10) Posttraumatic stress disorder Is this a current diagnosis for this admission?: Yes - Additional Information Resuscitation Status: Full Code Discharge Diet: Cardiac - Low-fat low-salt Discharge Activity: Activity As Tolerated, Balance Activity w/Rest, Slowly Increase Activity Home Medications: Folic Acid 1 mg PO DAILY 08/17/16 Furosemide [Lasix] 40 mg PO Q12 08/17/16 Gabapentin [Neurontin 300 mg Capsule] 300 mg PO QAM 08/17/16 Isosorbide Mononitrate [Imdur 30 mg Tablet.er] 15 mg PO DAILY 08/17/16 Metformin HCl [Metformin HCl ER] 1,000 mg PO Q12 08/17/16 Multivit-Min/FA/Lycopen/Lutein [Centrum Silver Men Tablet] 1 each PO DAILY 08/17 Omeprazole 20 mg PO Q12 08/17/16 Quetiapine Fumarate [Seroquel] 300 mg PO QHS 08/17/16 Thiamine HCl [Thiamine 100 mg Tablet] 100 mg PO DAILY 08/17/16 Venlafaxine HCl [Venlafaxine HCl ER] 300 mg PO QAM 08/17/16 Levofloxacin [Levaquin 750 mg Tablet] 750 mg PO DAILY #7 tablet 08/20/16 Losartan Potassium [Cozaar 50 mg Tablet] 50 mg PO DAILY #50 tablet 08/20/16 Metoprolol Tartrate [Lopressor 50 mg Tablet] 50 mg PO Q12 #60 tablet 08/20/16 Multivitamin [Tab-A-Sandor (Multiple Vitamin) Tablet] 1 tab PO DAILY tablet 08/20 History of Present Illness History of Present Illness: MARILOU CUTLER is a 46 year old male with a history of both systolic and diastolic congestive heart failure with ejection fraction 25% who presented with acute shortness of breath. The patient had been using cocaine on August 16. The patient also was noted to be very hypertensive and required IV nitroglycerin all other medications to control his blood pressure upon presentation. Patient did not have any complaints of chest pain. Admitted with acute on chronic congestive heart failure exacerbation made worse with hypertensive emergency. Hospital Course Hospital Course: 46-year-old gentleman with a history of both systolic and diastolic congestive heart failure who presented with acute shortness of breath secondary to hypertensive emergency along with exacerbation of his congestive heart failure. The patient was admitted to the ICU and placed on nitroglycerin drip and IV diuretics. Patient also had been placed on a BiPAP. His respiratory status improved enough that he was taken off the BiPAP and eventually was moved to the floor when his blood pressure was under better control. The patient had tested positive for cocaine and he has been on beta-blockers. Patient is adamant that he will not abuse cocaine again. The patient's diuretics were changed over to oral and while hospitalized he did have complaints of a productive cough and was diagnosed with acute bronchitis and started on antibiotics for that. Patient is back to his baseline and is discharged home. He will follow-up with his primary care doctor in 1-2 weeks. He is aware of the danger of taking cocaine while using a beta-shruthi and is insistent that he will not use cocaine ever again. Physical Exam Vital Signs: Temp Pulse Resp BP Pulse Ox 98.7 F 97 20 143/93 H 98 08/21/16 11:21 08/21/16 11:21 08/21/16 11:21 08/21/16 11:21 08/21/16 11:21 Intake & Output 08/20/16 08/21/16 08/22/16 06:59 06:59 06:59 Intake Total 1790 517 480 Output Total 1875 300 1 Balance -85 217 479 Weight 93 kg 94.1 kg General appearance: PRESENT: no acute distress Eye exam: PRESENT: conjunctiva pink. ABSENT: scleral icterus Ear exam: PRESENT: normal external ear exam Mouth exam: PRESENT: moist, tongue midline Neck exam: ABSENT: JVD Respiratory exam: PRESENT: clear to auscultation dewayne. ABSENT: rales, rhonchi, wheezes Cardiovascular exam: PRESENT: RRR. ABSENT: diastolic murmur, rubs, systolic murmur GI/Abdominal exam: PRESENT: normal bowel sounds, soft. ABSENT: distended, guarding, mass, organolmegaly, rebound, tenderness Extremities exam: ABSENT: calf tenderness, clubbing, pedal edema Neurological exam: PRESENT: alert, awake, oriented to person, oriented to place , oriented to time, oriented to situation, CN II-XII grossly intact. ABSENT: motor sensory deficit Psychiatric exam: PRESENT: appropriate affect Skin exam: PRESENT: dry, intact, warm. ABSENT: cyanosis, rash Results Laboratory Results: 08/18/16 04:37 08/20/16 05:14 08/17/16 08:10 Troponin I 0.041 Impressions: Abdomen Ultrasound 08/16/16 22:20 IMPRESSION: Small diffuse ascites. Small nonspecific heterogeneity of the liver. Limitation. Chest X-Ray 08/18/16 06:00 IMPRESSION: No significant interval change. Qualifiers PATEINT BEING DISCHARGED WITH ANY OF THE FOLLOWING DIAGNOSIS?: Heart Failure HF Pt being discharged on ACEI for LVEF less than 40%?: No Reason(s) for not prescribing ACEI:: Not indicated - On ARB HF Pt being discharged on ARBS for LVEF less than 40%?: Yes HF Pt with Afib discharged with Warfarin?: No Reason(s) for not prescribing Warfarin:: Not indicated - No atrial fibrillation HF Pt discharged on evidence-based Beta Shruthi:: Yes Plan Discharge Plan: Patient is discharged home in stable condition. Will follow with primary care in 1-2 weeks. Time Spent: Greater than 30 Minutes
== END 2016-08-21 14:00 | disposition home or self-care (01) | DRG 292 ==
LOC: ER 20:11 → UNDOADMIN 08-17 07:45 → EH 08-17 07:45 → ICU 08-17 11:48 → 3W 08-19 01:45 → 3S 08-19 04:50
PROVIDERS: ADMIT Family Medicine; ATTEND Family Medicine
PROC: 5A09457 Assistance with Respiratory Ventilation, 24-96 Consecutive Hours, Continuous Positive Airway Pressure (ICD-10-PCS; principal; 2016-08-17)
DX: I11.0 Hypertensive heart disease with heart failure (principal); I16.1 Hypertensive emergency; D68.9 Coagulation defect, unspecified; J20.9 Acute bronchitis, unspecified; I50.23 Acute on chronic systolic (congestive) heart failure; F14.10 Cocaine abuse, uncomplicated; F31.9 Bipolar disorder, unspecified; G47.33 Obstructive sleep apnea (adult) (pediatric); F43.10 Post-traumatic stress disorder, unspecified; Z91.19 Patient's noncompliance with other medical treatment and regimen; E11.9 Type 2 diabetes mellitus without complications; Z79.84 Long term (current) use of oral hypoglycemic drugs
CPT/HCPCS: 36415; 71010; 76700; 80048; 80053; 80074; 80307; 82550; 82553; 82803; 82962; 83690; 83735; 83880; 84439; 84443; 84484; 85025; 85027; 85610; 85730; 93005; 93010; 94660; 96365; 96366; 96375; 96376; 99291; J1940; J2060; J3490